=== PATIENT | male | born 1965 | race Two or more races ===

== ENCOUNTER 2018-11-04 08:30 | Outpatient (AMBR) | payer MEDICARE, MEDICAID, SELFPAY ==
--- NOTE | 2018-10-14 13:08 | PTNOTE_ITS ---
PT OP Initial Eval Patient Information Visit Reasons: myositis Medical Diagnosis: M60.9 Treatment Dx #1: Difficulty Walking Treatment Dx #2: R LE Weakness Start of Care: 10/14/18 Date of Onset: 5 years ago Initial Assessment Subjective Pt is a 53 y/o male with a history of chronic left CVA. Pt mention that he's been having difficulty walking, standing, self care, balance, and performing his normal ADLs. Pt was recently put on muscle relaxer which seems to help him move better. Pt will like to focus on his right leg strength and balance. Objective Right LE PROM: all motions are WNL Right LE AROM: all motions are WFL Right LE MMTs Hip Flexors: 3/5 Quads: 4-/5 Hs: 4-/5 Adductors: 4-/5 Abductors: 4/5 Ankle DF: 4/5 Gait Observation: decrease right LE stance with minimal preswing and push off using single point cane Assessment Pt demonstrates residual weakness within the R LE and gait difficulty leading to decline function and difficulty with ADLs. Pt will benefit from physical therapy to increase right LE stability, strength, and work on ambulation. Short Term and Assisted Goals 1) Increase right LE MMTs grossly to 4/5 in 6 wks to be able to ambulate more than 30 mins 2) Increase right LE AROM WNL in 6 wks to be able to perform self care activities 3) Decrease right LE pain to 2/10 in 6 wks to be able to take less pain medication 4) Indep with HEP Treatment Plan 1) Manual Therapy 2) Therapeutic Activities 3) Therapeutic Exercises 4) Gait Training Frequency and Duration 2 x wk for 6 wks Certification Dates: 10/14/18 to 01/13/19 Office Procedures PT Procedures PT Date of Service: 10/14/18 OP PT Eval Mod Complex 30 minutes: Yes
--- NOTE | 2018-10-16 11:44 | PT.ODAYNRPT ---
PT Outpatient Daily Note Date of Service: October 16, 2018 OP Daily Note Visit Reasons: myositis Outpatient Physical Therapy Treatment Date: 10/16/18 Subjective: Pt drove to therapy. Pt also will like therapist to review meds that he's taking Objective: Please see flow chart for list of ther ex performed Assessment: review muscle relaxer and nausea meds with patient; perform all exercises with minimal rest. Plan: Continue with PT Length of Time (minutes) of Treatment: 30 Minutes Office Procedures PT Procedures PT Date of Service: 10/14/18 OP PT Eval Mod Complex 30 minutes: Yes Therapeutic Exercise 30 minutes: Yes
--- NOTE | 2018-10-22 09:07 | PT.ODAYNRPT ---
PT Outpatient Daily Note Date of Service: October 22, 2018 OP Daily Note Visit Reasons: myositis Outpatient Physical Therapy Treatment Date: 10/22/18 Subjective: Pt feels that his leg is stronger. Pt notice a difference in stability after last treatment session. Pt will be seeing the doctor tomorrow and will like to talk to him about doing therapy for the hand. Objective: Please see flow chart for list of ther ex performed Assessment: tolerate exercises with minimal pain; added monster walk able to perform with good LEs stability Plan: Continue with PT Length of Time (minutes) of Treatment: 40 Minutes Office Procedures PT Procedures PT Date of Service: 10/22/18 Therapeutic Activity 15 minutes: Yes Therapeutic Exercise 30 minutes: Yes PT Procedures PT Date of Service: 10/14/18 OP PT Eval Mod Complex 30 minutes: Yes Therapeutic Exercise 30 minutes: Yes
--- NOTE | 2018-10-24 10:44 | PT.ODAYNRPT ---
PT Outpatient Daily Note Date of Service: October 24, 2018 OP Daily Note Visit Reasons: myositis Outpatient Physical Therapy Treatment Date: 10/24/18 Subjective: pt does have speech difficulties but can understand most of his words. pt drove here on his own. Objective: see flow sheet. Assessment: pt came in with SPC and ataxic gait pattern. pt is pleasant and cooperative throughout treatment. pt has the RUE in flexion contracture with no brace. pt understands the exercises and can perform them with using one hand but with a steady pace. added thera band for his BLE to increase strength in which he did not have trouble with. rest breaks in between. Plan: continue POC per PT. Length of Time (minutes) of Treatment: 30 Minutes Office Procedures PT Procedures PT Date of Service: 10/22/18 Therapeutic Activity 15 minutes: Yes Therapeutic Exercise 30 minutes: Yes PT Procedures PT Date of Service: 10/24/18 Therapeutic Exercise 30 minutes: Yes PT Procedures PT Date of Service: 10/14/18 OP PT Eval Mod Complex 30 minutes: Yes Therapeutic Exercise 30 minutes: Yes
--- NOTE | 2018-10-30 09:32 | PT.ODAYNRPT ---
PT Outpatient Daily Note Date of Service: October 30, 2018 OP Daily Note Visit Reasons: myositis Outpatient Physical Therapy Treatment Date: 10/30/18 Subjective: Pt was really sore and fatigue after last treatment session. Pt worked with the technical support assistant and she push him really hard. Pt is also tired today. Objective: Please see flow chart for list of ther ex performed Assessment: continue resistance to side step and monster step with good tolerance. Pt was pace slower today due to feeling fatigue and tired at the beginning of PT session Plan: Continue with PT Length of Time (minutes) of Treatment: 45 Minutes Office Procedures PT Procedures PT Date of Service: 10/22/18 Therapeutic Activity 15 minutes: Yes Therapeutic Exercise 30 minutes: Yes PT Procedures PT Date of Service: 10/24/18 Therapeutic Exercise 30 minutes: Yes PT Procedures PT Date of Service: 10/14/18 OP PT Eval Mod Complex 30 minutes: Yes Therapeutic Exercise 30 minutes: Yes PT Procedures PT Date of Service: 10/30/18 Therapeutic Activity 15 minutes: Yes Therapeutic Exercise 30 minutes: Yes
--- NOTE | 2018-10-30 09:36 | PTNOTE_ITS ---
PT Outpatient Daily Note Date of Service: October 30, 2018 OP Daily Note Visit Reasons: myositis Outpatient Physical Therapy Treatment Date: 10/30/18 Subjective: Pt was really sore and fatigue after last treatment session. Pt worked with the purchasing assistant and she push him really hard. Pt is also tired today. Objective: Please see flow chart for list of ther ex performed Assessment: continue resistance to side step and monster step with good tolerance. Pt was pace slower today due to feeling fatigue and tired at the [facility] nning of PT session Plan: Continue with PT Length of Time (minutes) of Treatment: 45 Minutes Office Procedures PT Procedures PT Date of Service: 10/22/18 Therapeutic Activity 15 minutes: Yes Therapeutic Exercise 30 minutes: Yes PT Procedures PT Date of Service: 10/24/18 Therapeutic Exercise 30 minutes: Yes PT Procedures PT Date of Service: 10/14/18 OP PT Eval Mod Complex 30 minutes: Yes Therapeutic Exercise 30 minutes: Yes PT Procedures PT Date of Service: 10/30/18 Therapeutic Activity 15 minutes: Yes Therapeutic Exercise 30 minutes: Yes
--- NOTE | 2018-11-04 09:09 | PT.ODAYNRPT ---
PT Outpatient Daily Note Date of Service: November 04, 2018 OP Daily Note Visit Reasons: myositis Outpatient Physical Therapy Treatment Date: 11/04/18 Subjective: Pt is tired today. Pt denies of any change in activities at home nor lack of sleep. Pt just feels tired lately. Objective: Please see flow chart for list of ther ex performed Assessment: no resistance added today with exercises; pace to conserve energy. Since last treatment session Pt does exhibit exhaustion. Pt educated to rest at home with activities as well as pace. Plan: Continue with PT Length of Time (minutes) of Treatment: 30 Minutes Office Procedures PT Procedures PT Date of Service: 10/22/18 Therapeutic Activity 15 minutes: Yes Therapeutic Exercise 30 minutes: Yes PT Procedures PT Date of Service: 10/24/18 Therapeutic Exercise 30 minutes: Yes PT Procedures PT Date of Service: 11/04/18 Therapeutic Exercise 30 minutes: Yes PT Procedures PT Date of Service: 10/14/18 OP PT Eval Mod Complex 30 minutes: Yes Therapeutic Exercise 30 minutes: Yes PT Procedures PT Date of Service: 10/30/18 Therapeutic Activity 15 minutes: Yes Therapeutic Exercise 30 minutes: Yes
== END 2018-11-04 09:12 | disposition home or self-care (01) ==
PROVIDERS: PCP Physician Assistant; Referring Provider Physician Assistant; Visit Provider Physical Medicine & Rehabilitation Pain Medicine
DX: M60.9 Myositis, unspecified (principal); R26.2 Difficulty in walking, not elsewhere classified; R53.1 Weakness; Z86.73 Personal history of transient ischemic attack (TIA), and cerebral infarction without residual deficits
CPT/HCPCS: 97110; 97162; 97530

== ENCOUNTER → 2024-05-12 | Outpatient (CLI) | payer MEDICARE, MEDICAID, SELFPAY | END | disposition home or self-care (01) | LOC: SWHD 08:31 | PROVIDERS: PCP Family Medicine; Referring Provider Family Medicine; Visit Provider Student in an Organized Health Care Education/Training Program | DX: L02.611 Cutaneous abscess of right foot (principal); S81.811A Laceration without foreign body, right lower leg, initial encounter; X58.XXXA Exposure to other specified factors, initial encounter; R60.0 Localized edema; E11.621 Type 2 diabetes mellitus with foot ulcer; E11.40 Type 2 diabetes mellitus with diabetic neuropathy, unspecified; Z79.4 Long term (current) use of insulin; Z79.84 Long term (current) use of oral hypoglycemic drugs; M19.042 Primary osteoarthritis, left hand; I10 Essential (primary) hypertension | CPT/HCPCS: 11042; A9270 ==

== ENCOUNTER → 2024-05-13 | Outpatient (CLI) | payer MEDICARE, MEDICAID, SELFPAY ==
[2024-05-13 10:31] LABS: Basophils % (Auto) 1 % (0-2.5); Eosinophils # (Auto) 0.6 Thou/mm3 (0.0-0.5); Eosinophils % (Auto) 12 % (0-10); Hemoglobin 11.2 g/dL (13.5-16.0); Immature Granulocytes % (Auto) 0 % (0-0); Immature Granulocytes Auto 0.01 Thou/mm3 (0.00-0.00); Lymphocytes # (Auto) 1.8 Thou/mm3 (1.0-4.8); Lymphocytes % (Auto) 34 % (10-50); Mean Corpuscular HGB Conc 31.1 g/dl (31.0-37.0); Mean Corpuscular Hemoglobin 23.8 pg (25.0-35.0); Mean Corpuscular Volume 77 fL (80-100); Monocytes # (Auto) 0.4 Thou/mm3 (0.0-0.8); Monocytes % (Auto) 8 % (0-12); Neutrophils # (Auto) 2.3 Thou/mm3 (1.8-7.7); Neutrophils % (Auto) 45 % (37-80); Nucleated Red Blood Cell % 0 /100 WBC (0); Platelet Count 229 Thou/mm3 (140-440); RDW Standard Deviation 55.8 fL (35.1-43.9); White Blood Count 5.1 Thou/mm3 (3.8-10.6)
[2024-05-13 10:47] LABS: Alanine Aminotransferase 62 U/L (10-49); Albumin, Serum 3.8 gm/dL (3.5-5.0); Alkaline Phosphatase 110 U/L (46-116); Anion Gap 7 (7-16); Aspartate Amino Transferase 41 U/L (0-34); BUN/Creatinine Ratio 15 Ratio (12-20); Bilirubin,Total 0.3 mg/dL (0.3-1.2); Blood Urea Nitrogen 22 mg/dL (9-23); Calcium 8.9 mg/dL (8.3-10.6); Calcium (Corrected) 9.1 mg/dL (8.5-10.1); Carbon Dioxide 26.3 mMol/L (20.0-31.0); Chloride 105 mMol/L (98-107); Creatinine (Component) 1.5 mg/dL (0.6-1.3); Globulin 3.9 gm/dL (2.3-3.5); Glucose 131 mg/dL (74-106); Osmolality,Calculated 280 (275-295); Potassium 3.8 mMol/L (3.4-5.1); Sodium 138 mMol/L (136-145); Total Protein 7.7 gm/dL (5.7-8.2); eGFR 54 See Note
[2024-05-13 10:56] LABS: Sed Rate (ESR) 64 mm/hr (0-20)
== END | disposition home or self-care (01) ==
LOC: SLDO 09:50
PROVIDERS: Referring Provider Family Medicine; Visit Provider Family Medicine
DX: M86.9 Osteomyelitis, unspecified (principal)
CPT/HCPCS: 36415; 80053; 85025; 85652

== ENCOUNTER → 2024-05-21 | Outpatient (CLI) | payer MEDICARE, MEDICAID, SELFPAY ==
[2024-05-21 12:00] LABS: Basophils # (Auto) 0.1 Thou/mm3 (0.0-0.2); Basophils % (Auto) 1 % (0-2.5); Eosinophils # (Auto) 0.5 Thou/mm3 (0.0-0.5); Eosinophils % (Auto) 8 % (0-10); Hematocrit 37.5 % (41.0-53.0); Hemoglobin 11.5 g/dL (13.5-16.0); Immature Granulocytes % (Auto) 1 % (0-0); Immature Granulocytes Auto 0.03 Thou/mm3 (0.00-0.00); Lymphocytes # (Auto) 2.1 Thou/mm3 (1.0-4.8); Lymphocytes % (Auto) 33 % (10-50); Mean Corpuscular HGB Conc 30.7 g/dl (31.0-37.0); Mean Corpuscular Hemoglobin 23.9 pg (25.0-35.0); Mean Corpuscular Volume 78 fL (80-100); Monocytes # (Auto) 0.5 Thou/mm3 (0.0-0.8); Monocytes % (Auto) 7 % (0-12); Neutrophils # (Auto) 3.3 Thou/mm3 (1.8-7.7); Neutrophils % (Auto) 50 % (37-80); Nucleated Red Blood Cell % 0 /100 WBC (0); Platelet Count 284 Thou/mm3 (140-440); RDW Standard Deviation 54.1 fL (35.1-43.9); Red Blood Count 4.82 Miln/mm3 (4.50-5.90); White Blood Count 6.5 Thou/mm3 (3.8-10.6)
[2024-05-21 12:19] LABS: Alanine Aminotransferase 27 U/L (10-49); Albumin, Serum 3.9 gm/dL (3.5-5.0); Alkaline Phosphatase 112 U/L (46-116); Anion Gap 5 (7-16); Aspartate Amino Transferase 23 U/L (0-34); BUN/Creatinine Ratio 19 Ratio (12-20); Bilirubin,Total 0.3 mg/dL (0.3-1.2); Blood Urea Nitrogen 32 mg/dL (9-23); Calcium 9.5 mg/dL (8.3-10.6); Calcium (Corrected) 9.6 mg/dL (8.5-10.1); Carbon Dioxide 27.9 mMol/L (20.0-31.0); Chloride 102 mMol/L (98-107); Creatinine (Component) 1.7 mg/dL (0.6-1.3); Globulin 3.9 gm/dL (2.3-3.5); Glucose 257 mg/dL (74-106); Osmolality,Calculated 286 (275-295); Sodium 135 mMol/L (136-145); Total Protein 7.8 gm/dL (5.7-8.2); eGFR 47 See Note
[2024-05-21 12:56] LABS: Sed Rate (ESR) 74 mm/hr (0-20)
== END | disposition home or self-care (01) ==
LOC: SLDO 11:05
PROVIDERS: PCP Family Medicine; Referring Provider Family Medicine; Visit Provider Family Medicine
DX: M86.9 Osteomyelitis, unspecified (principal)
CPT/HCPCS: 36415; 80053; 85025; 85652

== ENCOUNTER → 2024-05-27 | Outpatient (CLI) | payer MEDICARE, MEDICAID, SELFPAY ==
[2024-05-27 16:47] LABS: Basophils # (Auto) 0.1 Thou/mm3 (0.0-0.2); Basophils % (Auto) 1 % (0-2.5); Eosinophils # (Auto) 0.8 Thou/mm3 (0.0-0.5); Eosinophils % (Auto) 9 % (0-10); Hematocrit 36.6 % (41.0-53.0); Hemoglobin 11.7 g/dL (13.5-16.0); Immature Granulocytes % (Auto) 0 % (0-0); Immature Granulocytes Auto 0.02 Thou/mm3 (0.00-0.00); Lymphocytes # (Auto) 2.2 Thou/mm3 (1.0-4.8); Lymphocytes % (Auto) 26 % (10-50); Mean Corpuscular Hemoglobin 24.5 pg (25.0-35.0); Mean Corpuscular Volume 77 fL (80-100); Monocytes # (Auto) 0.4 Thou/mm3 (0.0-0.8); Monocytes % (Auto) 5 % (0-12); Neutrophils # (Auto) 4.9 Thou/mm3 (1.8-7.7); Neutrophils % (Auto) 59 % (37-80); Nucleated Red Blood Cell % 0 /100 WBC (0); Platelet Count 272 Thou/mm3 (140-440); RDW Standard Deviation 51.8 fL (35.1-43.9); Red Blood Count 4.78 Miln/mm3 (4.50-5.90); White Blood Count 8.4 Thou/mm3 (3.8-10.6)
[2024-05-27 17:04] LABS: Alanine Aminotransferase 44 U/L (10-49); Albumin, Serum 3.8 gm/dL (3.5-5.0); Albumin/Globulin Ratio 1.1 (1.2-2.2); Alkaline Phosphatase 119 U/L (46-116); Anion Gap 7 (7-16); Aspartate Amino Transferase 17 U/L (0-34); BUN/Creatinine Ratio 16 Ratio (12-20); Bilirubin,Total 0.2 mg/dL (0.3-1.2); Blood Urea Nitrogen 31 mg/dL (9-23); Calcium (Corrected) 9.2 mg/dL (8.5-10.1); Carbon Dioxide 27.3 mMol/L (20.0-31.0); Chloride 100 mMol/L (98-107); Globulin 3.5 gm/dL (2.3-3.5); Glucose 366 mg/dL (74-106); Osmolality,Calculated 289 (275-295); Potassium 4.4 mMol/L (3.4-5.1); Sodium 134 mMol/L (136-145); Total Protein 7.3 gm/dL (5.7-8.2); eGFR 38 See Note
[2024-05-27 17:58] LABS: Sed Rate (ESR) 109 mm/hr (0-20)
== END | disposition home or self-care (01) ==
LOC: SLDO 15:44
PROVIDERS: PCP Family Medicine; Referring Provider Family Medicine; Visit Provider Family Medicine
DX: M86.9 Osteomyelitis, unspecified (principal)
CPT/HCPCS: 36415; 80053; 85025; 85652

== ENCOUNTER → 2024-06-02 | Outpatient (CLI) | payer MEDICARE, MEDICAID, SELFPAY | END | disposition home or self-care (01) | LOC: SWHD 08:42 | PROVIDERS: PCP Family Medicine; Referring Provider Family Medicine; Visit Provider Student in an Organized Health Care Education/Training Program | DX: E11.621 Type 2 diabetes mellitus with foot ulcer (principal); L97.512 Non-pressure chronic ulcer of other part of right foot with fat layer exposed; E11.40 Type 2 diabetes mellitus with diabetic neuropathy, unspecified; Z79.4 Long term (current) use of insulin; Z79.84 Long term (current) use of oral hypoglycemic drugs; M19.042 Primary osteoarthritis, left hand; R60.0 Localized edema; L02.611 Cutaneous abscess of right foot; I10 Essential (primary) hypertension; I67.89 Other cerebrovascular disease; G81.91 Hemiplegia, unspecified affecting right dominant side; I73.9 Peripheral vascular disease, unspecified; D64.9 Anemia, unspecified | CPT/HCPCS: 99213; A9270; G0463 ==

== ENCOUNTER → 2024-06-03 | Outpatient (CLI) | payer MEDICARE, MEDICAID, SELFPAY ==
[2024-06-03 13:16] LABS: Basophils # (Auto) 0.1 Thou/mm3 (0.0-0.2); Basophils % (Auto) 1 % (0-2.5); Eosinophils # (Auto) 0.8 Thou/mm3 (0.0-0.5); Eosinophils % (Auto) 10 % (0-10); Hematocrit 36.1 % (41.0-53.0); Hemoglobin 11.2 g/dL (13.5-16.0); Immature Granulocytes % (Auto) 0 % (0-0); Immature Granulocytes Auto 0.02 Thou/mm3 (0.00-0.00); Lymphocytes # (Auto) 2.6 Thou/mm3 (1.0-4.8); Lymphocytes % (Auto) 31 % (10-50); Mean Corpuscular Hemoglobin 23.8 pg (25.0-35.0); Mean Corpuscular Volume 77 fL (80-100); Monocytes # (Auto) 0.5 Thou/mm3 (0.0-0.8); Monocytes % (Auto) 6 % (0-12); Neutrophils # (Auto) 4.5 Thou/mm3 (1.8-7.7); Neutrophils % (Auto) 53 % (37-80); Nucleated Red Blood Cell % 0 /100 WBC (0); Platelet Count 220 Thou/mm3 (140-440); RDW Standard Deviation 50.5 fL (35.1-43.9); White Blood Count 8.6 Thou/mm3 (3.8-10.6)
[2024-06-03 13:45] LABS: Anion Gap 10 (7-16); BUN/Creatinine Ratio 15 Ratio (12-20); Blood Urea Nitrogen 25 mg/dL (9-23); Calcium 8.6 mg/dL (8.3-10.6); Carbon Dioxide 22.6 mMol/L (20.0-31.0); Chloride 99 mMol/L (98-107); Creatinine (Component) 1.7 mg/dL (0.6-1.3); Glucose 354 mg/dL (74-106); Osmolality,Calculated 282 (275-295); Potassium 4.1 mMol/L (3.4-5.1); Sodium 132 mMol/L (136-145); eGFR 47 See Note
== END | disposition home or self-care (01) ==
PROVIDERS: PCP Family Medicine; Referring Provider Family Medicine; Visit Provider Family Medicine
DX: M86.00 Acute hematogenous osteomyelitis, unspecified site (principal)
CPT/HCPCS: 36415; 80048; 85025

== ENCOUNTER → 2024-06-09 | Outpatient (CLI) | payer MEDICARE, MEDICAID, SELFPAY | END | disposition home or self-care (01) | LOC: SWHD 08:35 | PROVIDERS: PCP Family Medicine; Referring Provider Family Medicine; Visit Provider Student in an Organized Health Care Education/Training Program | DX: L97.512 Non-pressure chronic ulcer of other part of right foot with fat layer exposed (principal); E11.40 Type 2 diabetes mellitus with diabetic neuropathy, unspecified; Z79.4 Long term (current) use of insulin; Z79.84 Long term (current) use of oral hypoglycemic drugs; M19.042 Primary osteoarthritis, left hand; R60.0 Localized edema; L02.611 Cutaneous abscess of right foot; I10 Essential (primary) hypertension; I67.89 Other cerebrovascular disease; G81.91 Hemiplegia, unspecified affecting right dominant side; I73.9 Peripheral vascular disease, unspecified; D64.9 Anemia, unspecified | CPT/HCPCS: 87070; 87075; 87077; 87186; 87205; 99213; A9270; G0463 ==

== ENCOUNTER → 2024-06-10 | Outpatient (CLI) | payer MEDICARE, MEDICAID, SELFPAY ==
[2024-06-10 14:22] LABS: Basophils # (Auto) 0.1 Thou/mm3 (0.0-0.2); Basophils % (Auto) 1 % (0-2.5); Eosinophils # (Auto) 1.3 Thou/mm3 (0.0-0.5); Eosinophils % (Auto) 16 % (0-10); Hematocrit 35.6 % (41.0-53.0); Immature Granulocytes % (Auto) 0 % (0-0); Immature Granulocytes Auto 0.02 Thou/mm3 (0.00-0.00); Lymphocytes # (Auto) 1.9 Thou/mm3 (1.0-4.8); Lymphocytes % (Auto) 23 % (10-50); Mean Corpuscular HGB Conc 30.9 g/dl (31.0-37.0); Mean Corpuscular Hemoglobin 23.8 pg (25.0-35.0); Mean Corpuscular Volume 77 fL (80-100); Monocytes # (Auto) 0.9 Thou/mm3 (0.0-0.8); Monocytes % (Auto) 11 % (0-12); Neutrophils # (Auto) 4.1 Thou/mm3 (1.8-7.7); Neutrophils % (Auto) 50 % (37-80); Nucleated Red Blood Cell % 0 /100 WBC (0); Platelet Count 179 Thou/mm3 (140-440); RDW Standard Deviation 52.1 fL (35.1-43.9); Red Blood Count 4.62 Miln/mm3 (4.50-5.90); White Blood Count 8.3 Thou/mm3 (3.8-10.6)
[2024-06-10 14:51] LABS: Anion Gap 10 (7-16); BUN/Creatinine Ratio 17 Ratio (12-20); Blood Urea Nitrogen 33 mg/dL (9-23); Calcium 9.5 mg/dL (8.3-10.6); Chloride 97 mMol/L (98-107); Glucose 358 mg/dL (74-106); Osmolality,Calculated 285 (275-295); Potassium 4.2 mMol/L (3.4-5.1); Sodium 132 mMol/L (136-145); eGFR 38 See Note
== END | disposition home or self-care (01) ==
LOC: SLDO 13:03
PROVIDERS: Referring Provider Family Medicine; Visit Provider Family Medicine
DX: M86.9 Osteomyelitis, unspecified (principal)
CPT/HCPCS: 36415; 80048; 85025

== ENCOUNTER → 2024-06-16 | Outpatient (CLI) | payer MEDICARE, MEDICAID, SELFPAY | END | disposition home or self-care (01) | LOC: SWHD 08:40 | PROVIDERS: PCP Family Medicine; Referring Provider Family Medicine; Visit Provider Surgery | DX: E11.621 Type 2 diabetes mellitus with foot ulcer (principal); L97.512 Non-pressure chronic ulcer of other part of right foot with fat layer exposed; E11.40 Type 2 diabetes mellitus with diabetic neuropathy, unspecified; M19.042 Primary osteoarthritis, left hand; R60.0 Localized edema; L02.611 Cutaneous abscess of right foot; I10 Essential (primary) hypertension; I67.89 Other cerebrovascular disease; G81.91 Hemiplegia, unspecified affecting right dominant side; I73.9 Peripheral vascular disease, unspecified; D64.9 Anemia, unspecified; Z79.84 Long term (current) use of oral hypoglycemic drugs; Z79.4 Long term (current) use of insulin | CPT/HCPCS: 99213; A9270; G0463 ==

== ENCOUNTER → 2024-06-17 | Outpatient (CLI) | payer MEDICARE, MEDICAID, SELFPAY ==
[2024-06-17 12:37] LABS: Basophils # (Auto) 0.1 Thou/mm3 (0.0-0.2); Basophils % (Auto) 1 % (0-2.5); Eosinophils # (Auto) 0.9 Thou/mm3 (0.0-0.5); Eosinophils % (Auto) 10 % (0-10); Hematocrit 38.2 % (41.0-53.0); Immature Granulocytes % (Auto) 1 % (0-0); Immature Granulocytes Auto 0.06 Thou/mm3 (0.00-0.00); Lymphocytes # (Auto) 2.8 Thou/mm3 (1.0-4.8); Lymphocytes % (Auto) 31 % (10-50); Mean Corpuscular HGB Conc 31.4 g/dl (31.0-37.0); Mean Corpuscular Hemoglobin 23.9 pg (25.0-35.0); Mean Corpuscular Volume 76 fL (80-100); Monocytes # (Auto) 0.5 Thou/mm3 (0.0-0.8); Monocytes % (Auto) 5 % (0-12); Neutrophils # (Auto) 4.6 Thou/mm3 (1.8-7.7); Neutrophils % (Auto) 52 % (37-80); Nucleated Red Blood Cell % 0 /100 WBC (0); Platelet Count 308 Thou/mm3 (140-440); RDW Standard Deviation 49.8 fL (35.1-43.9); Red Blood Count 5.03 Miln/mm3 (4.50-5.90); White Blood Count 8.8 Thou/mm3 (3.8-10.6)
[2024-06-17 12:58] LABS: Anion Gap 8 (7-16); BUN/Creatinine Ratio 16 Ratio (12-20); Blood Urea Nitrogen 28 mg/dL (9-23); Calcium 9.6 mg/dL (8.3-10.6); Chloride 100 mMol/L (98-107); Creatinine (Component) 1.8 mg/dL (0.6-1.3); Glucose 227 mg/dL (74-106); Osmolality,Calculated 280 (275-295); Potassium 4.1 mMol/L (3.4-5.1); Sodium 134 mMol/L (136-145); eGFR 44 See Note
== END | disposition home or self-care (01) ==
LOC: SLDO 11:21
PROVIDERS: PCP Family Medicine; Referring Provider Family Medicine; Visit Provider Family Medicine
DX: M86.9 Osteomyelitis, unspecified (principal)
CPT/HCPCS: 36415; 80048; 85025

== ENCOUNTER → 2024-06-23 | Outpatient (CLI) | payer MEDICARE, MEDICAID, SELFPAY | END | disposition home or self-care (01) | LOC: SWHD 08:19 | PROVIDERS: PCP Family Medicine; Referring Provider Family Medicine; Visit Provider Student in an Organized Health Care Education/Training Program | DX: E11.621 Type 2 diabetes mellitus with foot ulcer (principal); L97.512 Non-pressure chronic ulcer of other part of right foot with fat layer exposed; E11.40 Type 2 diabetes mellitus with diabetic neuropathy, unspecified; M19.042 Primary osteoarthritis, left hand; R60.0 Localized edema; L02.611 Cutaneous abscess of right foot; I10 Essential (primary) hypertension; I67.89 Other cerebrovascular disease; G81.91 Hemiplegia, unspecified affecting right dominant side; I73.9 Peripheral vascular disease, unspecified; D64.9 Anemia, unspecified; Z79.84 Long term (current) use of oral hypoglycemic drugs; Z79.4 Long term (current) use of insulin | CPT/HCPCS: 10060; A9270 ==

== ENCOUNTER → 2024-06-25 | Outpatient (CLI) | payer MEDICARE, MEDICAID, SELFPAY ==
[2024-06-25 11:26] LABS: Basophils # (Auto) 0.1 Thou/mm3 (0.0-0.2); Basophils % (Auto) 1 % (0-2.5); Eosinophils # (Auto) 1.1 Thou/mm3 (0.0-0.5); Eosinophils % (Auto) 12 % (0-10); Hematocrit 36.8 % (41.0-53.0); Hemoglobin 11.6 g/dL (13.5-16.0); Immature Granulocytes % (Auto) 0 % (0-0); Immature Granulocytes Auto 0.02 Thou/mm3 (0.00-0.00); Lymphocytes # (Auto) 2.6 Thou/mm3 (1.0-4.8); Lymphocytes % (Auto) 31 % (10-50); Mean Corpuscular HGB Conc 31.5 g/dl (31.0-37.0); Mean Corpuscular Hemoglobin 23.6 pg (25.0-35.0); Mean Corpuscular Volume 75 fL (80-100); Monocytes # (Auto) 0.5 Thou/mm3 (0.0-0.8); Monocytes % (Auto) 6 % (0-12); Neutrophils # (Auto) 4.3 Thou/mm3 (1.8-7.7); Neutrophils % (Auto) 50 % (37-80); Nucleated Red Blood Cell % 0 /100 WBC (0); Platelet Count 314 Thou/mm3 (140-440); RDW Standard Deviation 48.6 fL (35.1-43.9); Red Blood Count 4.91 Miln/mm3 (4.50-5.90); White Blood Count 8.6 Thou/mm3 (3.8-10.6)
[2024-06-25 11:44] LABS: Alanine Aminotransferase 42 U/L (10-49); Albumin, Serum 4.2 gm/dL (3.5-5.0); Albumin/Globulin Ratio 1.3 (1.2-2.2); Alkaline Phosphatase 107 U/L (46-116); Anion Gap 9 (7-16); Aspartate Amino Transferase 32 U/L (0-34); BUN/Creatinine Ratio 18 Ratio (12-20); Bilirubin,Total 0.2 mg/dL (0.3-1.2); Blood Urea Nitrogen 38 mg/dL (9-23); Calcium 9.7 mg/dL (8.3-10.6); Calcium (Corrected) 9.7 mg/dL (8.5-10.1); Carbon Dioxide 26.3 mMol/L (20.0-31.0); Chloride 100 mMol/L (98-107); Creatinine (Component) 2.1 mg/dL (0.6-1.3); Globulin 3.3 gm/dL (2.3-3.5); Glucose 329 mg/dL (74-106); Osmolality,Calculated 292 (275-295); Sodium 135 mMol/L (136-145); Total Protein 7.5 gm/dL (5.7-8.2); eGFR 36 See Note
== END | disposition home or self-care (01) ==
LOC: SLDO 10:13
PROVIDERS: PCP Family Medicine; Referring Provider Family Medicine; Visit Provider Family Medicine
DX: Z01.89 Encounter for other specified special examinations (principal); Z79.2 Long term (current) use of antibiotics
CPT/HCPCS: 36415; 80053; 85025

== ENCOUNTER → 2024-06-30 | Outpatient (CLI) | payer MEDICARE, MEDICAID, SELFPAY | END | disposition home or self-care (01) | LOC: SWHD 08:17 | PROVIDERS: PCP Family Medicine; Referring Provider Family Medicine; Visit Provider Student in an Organized Health Care Education/Training Program | DX: E11.621 Type 2 diabetes mellitus with foot ulcer (principal); L97.512 Non-pressure chronic ulcer of other part of right foot with fat layer exposed; E11.40 Type 2 diabetes mellitus with diabetic neuropathy, unspecified; M19.042 Primary osteoarthritis, left hand; R60.0 Localized edema; L02.611 Cutaneous abscess of right foot; I10 Essential (primary) hypertension; I67.89 Other cerebrovascular disease; G81.91 Hemiplegia, unspecified affecting right dominant side; I73.9 Peripheral vascular disease, unspecified; D64.9 Anemia, unspecified; Z79.84 Long term (current) use of oral hypoglycemic drugs; Z79.4 Long term (current) use of insulin | CPT/HCPCS: 99213; A9270; G0463 ==

== ENCOUNTER → 2024-07-01 | Outpatient (CLI) | payer MEDICARE, MEDICAID, SELFPAY ==
[2024-07-01 15:03] LABS: Basophils # (Auto) 0.1 Thou/mm3 (0.0-0.2); Basophils % (Auto) 1 % (0-2.5); Eosinophils # (Auto) 0.9 Thou/mm3 (0.0-0.5); Eosinophils % (Auto) 14 % (0-10); Hematocrit 35.7 % (41.0-53.0); Hemoglobin 11.1 g/dL (13.5-16.0); Immature Granulocytes % (Auto) 0 % (0-0); Immature Granulocytes Auto 0.02 Thou/mm3 (0.00-0.00); Lymphocytes # (Auto) 2.3 Thou/mm3 (1.0-4.8); Lymphocytes % (Auto) 36 % (10-50); Mean Corpuscular HGB Conc 31.1 g/dl (31.0-37.0); Mean Corpuscular Hemoglobin 23.6 pg (25.0-35.0); Mean Corpuscular Volume 76 fL (80-100); Monocytes # (Auto) 0.6 Thou/mm3 (0.0-0.8); Monocytes % (Auto) 9 % (0-12); Neutrophils # (Auto) 2.6 Thou/mm3 (1.8-7.7); Neutrophils % (Auto) 40 % (37-80); Nucleated Red Blood Cell % 0 /100 WBC (0); Platelet Count 249 Thou/mm3 (140-440); Red Blood Count 4.71 Miln/mm3 (4.50-5.90); White Blood Count 6.5 Thou/mm3 (3.8-10.6)
[2024-07-01 15:16] LABS: Anion Gap 9 (7-16); BUN/Creatinine Ratio 14 Ratio (12-20); Blood Urea Nitrogen 23 mg/dL (9-23); Calcium 9.5 mg/dL (8.3-10.6); Carbon Dioxide 28.5 mMol/L (20.0-31.0); Chloride 96 mMol/L (98-107); Creatinine (Component) 1.7 mg/dL (0.6-1.3); Glucose 382 mg/dL (74-106); Osmolality,Calculated 286 (275-295); Potassium 3.9 mMol/L (3.4-5.1); Sodium 133 mMol/L (136-145); eGFR 47 See Note
== END | disposition home or self-care (01) ==
LOC: SLDO 13:39
PROVIDERS: PCP Family Medicine; Referring Provider Family Medicine; Visit Provider Family Medicine
DX: Z01.89 Encounter for other specified special examinations (principal)
CPT/HCPCS: 36415; 80048; 85025

== ENCOUNTER 2024-07-07 17:54 | Emergency (ER) | payer MEDICARE, MEDICAID, SELFPAY ==
[2024-07-07 17:55] VITALS: BMI 24.3
[2024-07-07 18:37] VITALS: BP 116/62; PULSE 110; RESP 17; TEMP 36.9; O2SAT 95
--- NOTE | 2024-07-07 18:46 | PD.EDRME ---
Rapid Medical Screening Exam RME Arrival date/time: 07/07/24 17:54 58-year-old male past medical history of CVA with right-sided weakness, diabetes on insulin, osteomyelitis, and currently receiving IV antibiotics at home presents emergency department complaining of elevated blood sugar greater than 600. Chief Complaint: General Adult/Misc Complain Time Seen by Provider: 07/07/24 18:39 Vital signs: Vital Signs Temperature 98.4 F 07/07/24 18:37 Pulse Rate 110 H 07/07/24 18:37 Respiratory Rate 17 07/07/24 18:37 Blood Pressure 116/62 07/07/24 18:37 Pulse Oximetry (%) 95 07/07/24 18:37 Oxygen Delivery Method Room Air 07/07/24 18:37 Vital signs reviewed by provider: Yes
[2024-07-07 19:20] LABS: Base Excess, Venous 0 (-3-3); Basophils # (Auto) 0.1 Thou/mm3 (0.0-0.2); Basophils % (Auto) 1 % (0-2.5); Eosinophils # (Auto) 0.5 Thou/mm3 (0.0-0.5); Eosinophils % (Auto) 5 % (0-10); Hematocrit 38.7 % (41.0-53.0); Hemoglobin 12.2 g/dL (13.5-16.0); Immature Granulocytes % (Auto) 0 % (0-0); Immature Granulocytes Auto 0.02 Thou/mm3 (0.00-0.00); Lymphocytes # (Auto) 0.9 Thou/mm3 (1.0-4.8); Lymphocytes % (Auto) 10 % (10-50); Mean Corpuscular HGB Conc 31.5 g/dl (31.0-37.0); Mean Corpuscular Hemoglobin 23.7 pg (25.0-35.0); Mean Corpuscular Volume 75 fL (80-100); Monocytes # (Auto) 0.6 Thou/mm3 (0.0-0.8); Monocytes % (Auto) 6 % (0-12); Neutrophils # (Auto) 7.2 Thou/mm3 (1.8-7.7); Neutrophils % (Auto) 78 % (37-80); Nucleated Red Blood Cell % 0 /100 WBC (0); O2 Saturation, Venous 79 % (96-97); PCO2, Venous 37 mmHg (36-56); PO2, Venous 41 mmHg (15-58); Platelet Count 253 Thou/mm3 (140-440); RDW Standard Deviation 45.7 fL (35.1-43.9); Red Blood Count 5.14 Miln/mm3 (4.50-5.90); White Blood Count 9.2 Thou/mm3 (3.8-10.6); pH, Venous 7.43 (7.33-7.66)
[2024-07-07 19:32] LABS: Beta Hydroxybutyrate 0.2 mmol/L (<0.6)
[2024-07-07 19:34] LABS: Lactate (Lactic Acid) 4.7 mMol/L (0.4-2.0)
[2024-07-07 19:47] LABS: Glucose Estimated Average 266 mg/dL (80-131); Hemoglobin A1C 10.9 % Hgb (4.8-6.0)
[2024-07-07 19:52] VITALS: BP 116/76; PULSE 112; RESP 20; TEMP 36.4; O2SAT 100
[2024-07-07 19:54] LABS: Alanine Aminotransferase 26 U/L (10-49); Albumin, Serum 4.5 gm/dL (3.5-5.0); Albumin/Globulin Ratio 1.1 (1.2-2.2); Alkaline Phosphatase 132 U/L (46-116); Anion Gap 12 (7-16); Aspartate Amino Transferase 10 U/L (0-34); BUN/Creatinine Ratio 10 Ratio (12-20); Bilirubin,Total 0.3 mg/dL (0.3-1.2); Blood Urea Nitrogen 26 mg/dL (9-23); Calcium 10.7 mg/dL (8.3-10.6); Calcium (Corrected) 10.7 mg/dL (8.5-10.1); Carbon Dioxide 24.4 mMol/L (20.0-31.0); Chloride 94 mMol/L (98-107); Creatinine (Component) 2.7 mg/dL (0.6-1.3); Estimated Creatinine Clearance 29.6 mL/min (>60); Osmolality,Calculated 292 (275-295); Potassium 4.1 mMol/L (3.4-5.1); Sodium 130 mMol/L (136-145); Total Protein 8.5 gm/dL (5.7-8.2); eGFR 27 See Note
[2024-07-07 19:56] LABS: Glucose 591 mg/dL (74-106)
--- NOTE | 2024-07-07 20:03 | EDNOTE_ITS ---
ED General RME/HPI General Chief complaint: General Adult/Misc Complain Stated complaint: HIGH BLOOD SUGAR, 680 AT HOME Time Seen by Provider: 07/07/24 18:39 Arrival date/time: 07/07/24 17:54 CC: Anxiety attack HPI ongoing all day however the patient does admit that he has nausea, and vomited x 1 today, denies diarrhea. The patient is not taking any of his medications today including his insulin. The patient is on treatment for osteomyelitis in the right foot he has a PICC line in the left arm. It is unclear whether the patient took his medications yesterday not even with the family member at bedside 1 states that he did take him and the other did not. Patient is awake alert oriented no complaints of pain shortness of breath or difficulty breathing and his anxiety has resolved. RME / HPI RME / HPI narrative: 07/07/24 17:54 58-year-old male past medical history of CVA with right-sided weakness, diabetes on insulin, osteomyelitis, and currently receiving IV antibiotics at home presents emergency department complaining of elevated blood sugar greater than 600. Related Data Home Medications ?Medication ?Instructions ?Recorded ?Confirmed aspirin 81 mg chewable tablet 81 mg PO DAILY 07/23/23 04/30/24 buspirone 15 mg tablet 30 mg PO BID 07/23/23 04/30/24 duloxetine 30 mg capsule,delayed 30 mg PO QDAY 07/23/23 04/30/24 release atorvastatin 40 mg tablet 40 mg PO QPM 01/13/24 04/30/24 sitagliptin phosphate 50 1 tab PO BID 01/13/24 04/30/24 mg-metformin 1,000 mg tablet (Janumet) baclofen 20 mg tablet 20 mg PO BID 03/30/24 04/30/24 Previous Rx's ?Medication ?Instructions ?Recorded blood-glucose sensor (FreeStyle #1 ea 01/16/24 Isale 3 Sensor device) lisinopril 40 mg tablet 40 mg PO QDAY #30 tabs 01/16/24 tamsulosin 0.4 mg capsule 0.4 mg PO QDAY #30 caps 01/16/24 pen needle, diabetic 31 gauge x #100 ea 01/17/2411/21 (Pen Needle) bisacodyl 5 mg tablet (Laxative 5 mg PO QDAY PRN constipation #30 02/03/24 (bisacodyl)) tabs blood sugar diagnostic (Accu-Chek #100 ea 03/31/24 Guide test strips) blood-glucose meter (Accu-Chek #1 03/31/24 Guide Glucose Meter) blood-glucose meter,continuous #1 03/31/24 (FreeStyle Isael 3 [place]) blood-glucose sensor (FreeStyle #1 ea 03/31/24 Isael 3 Sensor device) lancets (Accu-Chek Softclix #100 ea 03/31/24 Lancets) pen needle, diabetic 32 gauge x #100 ea 03/31/24 (Pen Needle) insulin degludec 200 unit/mL (3 10 unit (0.05 mL) subcut QDAY #9 mL 05/01/24 mL) subcutaneous pen (Tresiba FlexTouch U-200 insulin) Allergies Allergy/AdvReac Type Severity Reaction Status Date / Time No Known Allergies Allergy Verified 07/07/24 17:55 Review of Systems Review of Systems Narrative Review of Systems: GEN: No fever, no chills, no weight loss EYES: No discharge, no visual changes, no pain HEENT: No ear pain, no congestion, no sore throat PULM: No shortness of breath, no cough, no congestion CV: No chest pain, no dyspnea on exertion, no palpitations GI: + nausea, + vomiting, no diarrhea, no pain, no constipation : No frequency, no urgency, no dysuria MUSC/SKEL: No joint pain, no back pain SKIN: No rash PSYCH: No hallucinations, no depression HEME/LYMPH: No easy bleeding or bruising tendencies NEURO: No weakness, no headache Past Medical History Past Medical History NEUROLOGIC: Positive Neurological Disorders and Cerebrovascular Accident (2012); Negative Transient Ischemic Attacks (TIA), Dementia, Alzheimer's Disease, Parkinson's Disease, Brain Tumor, Meningitis, Seizures, Epilepsy, Multiple Sclerosis, Cerebral Palsy, Amyotrophic Lateral Sclerosis (ALS/Katie Gehrig's), Guillain-Stevenson Syndrome, Spina Bifida, Paralysis, Peripheral Neuropathy, Boogie's Palsy, Subdural Hematoma, Migraine, Head Trauma, Spinal Cord Injury or Traumatic Brain Injury CARDIAC: Positive Cardiac Disorders, Hypercholesterolemia, Edema and Hypertension; Negative Myocardial Infarction, Cardiac Arrhythmia, Atrial Fibrillation, Angina, Heart Murmur, Coronary Artery Disease, Atherosclerotic Heart Disease, Peripheral Vascular Disease, Aneurysm, Congestive Heart Failure, Congenital Heart Disease, Valvular Heart Disease, Rheumatic Fever, Cardiomyopathy, Pericarditis, Cellulitis, Deep Vein Thrombosis, Hypotension or Varicose Veins RESPIRATORY: Positive Asthma and Pneumonia; Negative Chronic Obstructive Pulmonary Disease (COPD), Bronchitis, Emphysema, Cystic Fibrosis, Tuberculosis, Pulmonary Embolism, Pulmonary Edema or Sleep Apnea GASTROINTESTINAL: Positive Gastroesophageal Reflux Disease; Negative Gastrointestinal Disorders, Hepatitis, Cirrhosis, Pancreatitis, Celiac Disease, Gall Bladder Disease, Gastrointestinal Bleed, Esophageal Varices, Lowry's Esophagus, Colitis, Ulcerative Colitis, Diverticulitis, Diverticulosis, Ulcer, Colorectal Cancer, Irritable Bowel, Crohn's Disease, Obstructive Bowel, Hiatal Hernia, Hemorrhoids or Obesity GENITOURINARY: Positive Genitourinary Disorders, Renal Disease and Inguinal Hernia; Negative Kidney Stones, Polycystic Kidney Disease, Neurogenic Bladder, Dialysis, Prostate Cancer or Benign Prostatic Hyperplasia REPRODUCTIVE: Negative Fibroids or Testicular Cancer MUSCULOSKELETAL: Negative Musculoskeletal Disorders, Muscular Dystrophy, Myasthenia Gravis, Marfan's Syndrome, Bone Cancer, Arthritis, Rheumatoid Arthritis, Osteoporosis, Degenerative Disk Disease, Gout, Scoliosis, Carpal Tunnel Syndrome, Fibromyalgia, Fractures, Degenerative Joint Disease, Osteomyelitis or Poliovirus ENT: Negative Cataracts, Glaucoma, Blind, Retinal Detachment, Macular Degeneration, Ear Infection, Deafness, Head Trauma or Eye Prosthesis ENDOCRINE: Positive Endocrine Disorders and Diabetes Mellitus Type 2; Negative Diabetes Mellitus Type 1, Hypoglycemia, Brayden's Syndrome, Kane's Disease, Hyperthyroidism, Hypothyroidism, Parathyroid Disease, Pituitary Disease, Systemic Lupus Erythematosus, Syndrome of Inappropriate Antidiuretic Hormone (SIADH), Adrenal Disease or Graves' Disease HEMATOLOGIC: Negative Blood Disorders, Anemia, Leukemia, Hemophilia, Thalassemia, Sickle Cell Disease or Clotting Problems PSYCHO/SOCIAL: Positive Anxiety and Self-Mutilation; Negative Psychiatric Problems, Schizophrenia, Recreational Drug Use, Bipolar Disorder, Depression, Behavior Problems, Attention Deficit Disorder, Attention Deficit Hyperactivity Disorder, Depression, Post Traumatic Stress Disorder or Eating Disorder OTHER HISTORY: Positive Falls; Negative Hospitalization, Autoimmune Disease, Down Syndrome, Autism, Developmental Delay, Shingles, Blood Transfusions, Blood Transfusion Reaction, Anesthesia Reactions, Organ Transplant, Chemotherapy, Radiation Therapy, Hyperbaric Therapy, MRSA, VRSA, Vancomycin-Resistant Enterococci, Human Immunodeficiency Virus (HIV), Chicken Pox, Measles, Mumps, Rubella (Congolese Measles), Pertussis, Clostridium Difficile, Cancer, Colorectal Cancer, Lung Cancer, Ovarian Cancer, Prostate Cancer or Testicular Cancer Family History FAMILY HISTORY: Negative Family Psychiatric Problems, Family Respiratory Disorders, Family Cardiac Disorders, Family Gastrointestinal Problems, Family Cancer, Family Surgery or Family Anesthesia Reaction Surgical History SURGICAL: Positive Abdominal Surgery; Negative Cardiac Surgery, Open Heart Surgery, Coronary Artery Bypass Graft, Valve Replacement, Vascular Surgery, Coronary Stent, Cardiac Catheterization, Pacemaker, Angiogram, Auto Implanted Cardiovert Defib, Carotid Endarterectomy, Endocrine Surgery, Thyroidectomy, Ear Surgery, Tympanostomy Tube, Eye Surgery, Nose Surgery, Oral Surgery, Tonsillectomy, Adenoidectomy, Cochlear Implant, Corneal Transplant, Throat Surgery, Tracheostomy, Gastric Bypass Surgery, Gastrostomy, Bowel Surgery, Nephrectomy, Transurethral Resection, Joint Replacement, Amputation, Open Reduction Internal Fixation, Arthroscopy, Neurologic Surgery, Brain Shunt, Vasectomy or Organ Transplant Social History SMOKING STATUS: Never smoker SECOND HAND EXPOSURE: Yes SUBSTANCE USE: does not use ED Exam Narrative Physical exam: [General: Thin but not emaciated not in any acute distress Head normocephalic HEENT: Within acceptable limits Neck is supple nontender Chest equal chest rise nontender to palpation Respiratory: Clear to auscultation no wheezes crackles or rubs CV: Rate rhythm is regular no murmurs rubs or clicks Abdomen is soft nontender no masses positive bowel sounds all 4 quadrants Back: No CVA tenderness no spinous process tenderness from cervical spine thoracic and lumbar spine Skin: Intact no petechiae rash induration ulceration or crepitus Extremities: Right foot clean dry and intact dressing, cap refill less than 2 seconds in the digits. Moving both lower extremities. Moving all other extremities against resistance cap refill less than 2 seconds neurosensory intact Neuro: Awake alert oriented x3 Glascow coma 15 no focal deficits] Course Quality Measures none Orders Category Date Time Status A1C [Glycohemoglobin w (eAG)] Stat Lab 07/07/24 19:07 Completed Beta Hydroxybutyrate Stat Lab 07/07/24 19:07 Completed Blood Culture (Lab) Stat Lab 07/07/24 19:01 Received C-Reactive Protein Stat Lab 07/07/24 19:07 Completed CBC Stat Lab 07/07/24 19:07 Completed CMP [Comprehensive Metabolic Panel] Stat Lab 07/07/24 19:07 Completed Lactic Acid [Lactate (Lactic Acid)] Stat Lab 07/07/24 19:07 Completed Lactic Acid, 3 HR Stat Lab 07/07/24 22:24 Completed Procalcitonin Stat Lab 07/07/24 19:07 Completed Sed Rate (ESR) Stat Lab 07/07/24 19:07 Completed VBG [Venous Blood Gas] Stat Lab 07/07/24 19:07 Completed Insulin Regular Med 07/07/24 19:58 Discontinued 10 unit SC X1 ONE Insulin Regular Med 07/07/24 22:36 Discontinued 10 unit SC X1 ONE LORazepam [Ativan Inj] Med 07/07/24 22:51 Discontinued 2 mg IVP X1 ONE Ondansetron Inj [Zofran Inj] Med 07/07/24 20:02 Discontinued 4 mg IV X1 ONE Sodium Chloride 0.9% 1000 ml [Ns] 1,000 ml Med 07/07/24 19:57 Discontinued IV 999 mls/hr Sodium Chloride 0.9% 1000 ml [Ns] 1,000 ml Med 07/07/24 19:57 Discontinued IV 999 mls/hr Vital Signs Vital signs: Vital Signs Temperature 98.4 F 07/07/24 18:37 Pulse Rate 110 H 07/07/24 18:37 Respiratory Rate 17 07/07/24 18:37 Blood Pressure 116/62 07/07/24 18:37 Pulse Oximetry (%) 95 07/07/24 18:37 Oxygen Delivery Method Room Air 07/07/24 18:37 [facility] Patient data External records reviewed:: [facility] previous records Clinical information provided by:: patient and family Social determinants that could affect healthcare access:: none Patient has the following chronic illnesses:: Diabetes hypertension hyperlipidemia currently on antibiotics for foot osteomyelitis. How is presenting disease/condition affected by chronic disease/condition?: u neffected by Evaluation data The following diagnostics were reviewed and interpreted by me:: lab results, radiology exam(s) and EKG tracing(s) Lab and/or radiology exams considered but not ordered:: CBC shows no leukocytosis, stable anemia no thrombocytopenia CMP shows a sodium of 130 potassium of 4.1 chloride of 94 CO2 of 24.4 BUN of 26 creatinine of 2.7 blood glucose of 591. VBG shows pH of 7.43 pO2 79 pCO2 of 37 base deficit is 0. Lactic of 4.7 Pro-Gus at 0.10 Beta hydroxy at 0.2 Interpretation Summary: This patient is afebrile nontoxic-appearing not in any acute distress and not any DKA with an elevated lactic of 4.8 I do not feel that this is a sepsis at this time. This may be lactic acidosis secondary to the hyperglycemia. Medications Medications considered but not ordered:: None Medication administrations:: Medication Administration History Discontinued Medications Sodium Chloride (Ns) 1,000 mls @ 999 mls/hr IV .Q1H1M ONE Stop: 07/07/24 20:57 Last Infusion: 07/07/24 21:29 Dose: Infused Documented By: Admin: 07/07/24 20:16 Dose: 999 mls/hr Documented By: TC Sodium Chloride (Ns) 1,000 mls @ 999 mls/hr IV .Q1H1M ONE Stop: 07/07/24 20:57 Last Infusion: 07/07/24 21:29 Dose: Infused Documented By: Admin: 07/07/24 20:16 Dose: 999 mls/hr Documented By: TC Insulin Human Regular (Insulin Hum Regular 1 Unit/0.01 Ml (Per Unit)) 10 unit SC X1 ONE Stop: 07/07/24 19:59 Last Admin: 07/07/24 20:11 Dose: 10 unit Documented By: TC Co-signed By: CVL Insulin Human Regular (Insulin Hum Regular 1 Unit/0.01 Ml (Per Unit)) 10 unit SC X1 ONE Stop: 07/07/24 22:37 Last Admin: 07/07/24 22:40 Dose: 10 unit Documented By: TC Co-signed By: CB Lorazepam (Lorazepam 2 Mg/Ml Vial) 2 mg IVP X1 ONE Stop: 07/07/24 22:52 Last Admin: 07/07/24 23:00 Dose: 2 mg Documented By: TC Ondansetron HCl (Ondansetron Inj 2 Mg/Ml Inj 2 Ml) 4 mg IV X1 ONE; Protocol Stop: 07/07/24 20:03 Last Admin: 07/07/24 20:15 Dose: 4 mg Documented By: ALVARO None Consultations Consultation(s) initiated? (list below): No Diagnosis Differential Diagnosis ED Complaint MDM: Sepsis hyperglycemia DKA Most likely diagnosis given after review of the tests above:: Hyperglycemia Admission Indicated Admission indicated?: not indicated Explain why admission is indicated or not indicated:: Stable for outpatient Admission Request Was there a request for admission?: No Disposition Plan Disposition Plan: Discharge Discharge Attestation Discharge Attestation: The patient and all family members were given an opportunity to ask questions and understood the discharge instructions. Discharge instructions specifically effects, indications for sooner follow up or return to the emergency department, and the expected course of current diagnosis. Patient condition: Stable Medical Decision Making Differential Diagnosis Differential Diagnosis: Sepsis hyperglycemia DKA Lab Data 07/07/24 19:07 07/07/24 19:07 Labs: Lab Results 07/07/24 07/07/24 Range/Units 19:07 22:24 WBC 9.2 (3.8-10.6) Thou/mm3 RBC 5.14 (4.50-5.90) Miln/mm3 Hgb 12.2 L (13.5-16.0) g/dL Hct 38.7 L (41.0-53.0) % MCV 75 L (80-100) fL MCH 23.7 L (25.0-35.0) pg MCHC 31.5 (31.0-37.0) g/dl RDW Std Deviation 45.7 H (35.1-43.9) fL Plt Count 253 D (140-440) Thou/mm3 Neut % (Auto) 78 (37-80) % Lymph % (Auto) 10 (10-50) % Wayne % (Auto) 6 (0-12) % Eos % (Auto) 5 (0-10) % Baso % (Auto) 1 (0-2.5) % Neut # (Auto) 7.2 (1.8-7.7) Thou/mm3 Lymph # (Auto) 0.9 L (1.0-4.8) Thou/mm3 Wayne # (Auto) 0.6 (0.0-0.8) Thou/mm3 Eos # (Auto) 0.5 (0.0-0.5) Thou/mm3 Baso # (Auto) 0.1 (0.0-0.2) Thou/mm3 Immature Gran # (Auto) 0.02 H (0.00-0.00) Thou/mm3 Absolute Nucleated RBC 0.00 (0.00-0.00) Thou/mm3 Immature Gran % 0 (0-0) % Nucleated RBC % 0 (0) /100 WBC ESR 80 H (0-20) mm/hr VBG pH 7.43 (7.33-7.66) VBG pCO2 37 (36-56) mmHg VBG pO2 41 (15-58) mmHg VBG O2 Sat (Mary) 79 L (96-97) % VBG Base Excess 0 (-3-3) Sodium 130 L (136-145) mMol/L Potassium 4.1 (3.4-5.1) mMol/L Chloride 94 L (98-107) mMol/L Carbon Dioxide 24.4 (20.0-31.0) mMol/L Anion Gap 12 (7-16) BUN 26 H (9-23) mg/dL Creatinine 2.7 H (0.6-1.3) mg/dL Estim Creat Clear Calc 29.6 L (>60) mL/min eGFR 27 L (60 - ) See Note BUN/Creatinine Ratio 10 L (12-20) Ratio Glucose 591 H* (74-106) mg/dL Estimated Ave Glu mg/dL 266 H (80-131) mg/dL Hemoglobin A1c 10.9 H (4.8-6.0) % Hgb Calculated Osmolality 292 (275-295) Lactic Acid 4.7 H* 2.5 H (0.4-2.0) mMol/L Calcium 10.7 H (8.3-10.6) mg/dL Corrected Calcium 10.7 H (8.5-10.1) mg/dL Total Bilirubin 0.3 (0.3-1.2) mg/dL AST 10 (0-34) U/L ALT 26 (10-49) U/L Alkaline Phosphatase 132 H (46-116) U/L C-Reactive Prot, Quant < 0.4 (0.0-0.9) mg/dL Total Protein 8.5 H (5.7-8.2) gm/dL Albumin 4.5 D (3.5-5.0) gm/dL Globulin 4.0 H (2.3-3.5) gm/dL Albumin/Globulin Ratio 1.1 L (1.2-2.2) Beta-Hydroxybutyrate/Acetoacetate 0.2 (<0.6) mmol/L Procalcitonin 0.10 (0.0-0.49) ng/ml Discharge Plan Plan Patient Disposition: HOME (Self Care) Patient condition on transfer: Stable Prescriptions/Referrals Prescriptions/Med Rec: No Action baclofen 20 mg tablet 20 mg PO BID Patient Comments: take 1 tablet by mouth twice a day (DME) pen needle, diabetic [Pen Needle] 32 gauge x 5/32 needle See Rx Instructions .Route Qty: 100 0RF Rx Instructions: As directed (DME) FreeStyle Isael 3 Sensor Device See Rx Instructions .Route Qty: 1 0RF Rx Instructions: As directed (DME) FreeStyle Isael 3 [place] Misc See Rx Instructions .Route Qty: 1 0RF Rx Instructions: As directed (DME) blood-glucose meter [Accu-Chek Guide Glucose Meter] Misc See Rx Instructions .ROUTE .MEDSUPPLY Qty: 1 0RF Rx Instructions: As directed (DME) Accu-Chek Guide test strips Strip See Rx Instructions .ROUTE .MEDSUPPLY Qty: 100 0RF Rx Instructions: As directed (DME) lancets [Accu-Chek Softclix Lancets] Mis See Rx Instructions .ROUTE .MEDSUPPLY Qty: 100 0RF Rx Instructions: As directed insulin degludec [Tresiba FlexTouch U-200] 200 unit/mL (3 mL) insulin pen 10 unit subcut QDAY Qty: 9 1RF aspirin 81 mg tablet,chewable 81 mg PO DAILY Patient Comments: chew and swallow 1 tablet by mouth once daily buspirone 15 mg tablet 30 mg PO BID Patient Comments: take 2 tablets by mouth twice a day duloxetine 30 mg capsule,delayed release(DR/EC) 30 mg PO QDAY Patient Comments: take 1 capsule by mouth once daily atorvastatin 40 mg Tablet 40 mg PO QPM Janumet 50-1,000 mg Tablet 1 tab PO BID lisinopril 40 mg tablet 40 mg PO QDAY Qty: 30 0RF (DME) FreeStyle Isael 3 Sensor Device See Rx Instructions .Route Qty: 1 0RF Rx Instructions: As directed tamsulosin 0.4 mg capsule 0.4 mg PO QDAY Qty: 30 0RF (DME) pen needle, diabetic [Pen Needle] 31 gauge x 5/16 needle See Rx Instructions .Route Qty: 100 0RF Rx Instructions: As directed Laxative (bisacodyl) 5 mg tablet 5 mg PO QDAY PRN (Reason: constipation) Qty: 30 0RF Referrals: Kyler Molina MD [Primary Care Provider] - In 1 week Problem List Clinical Impression: Anxiety attack, Hyperglycemia Patient/Caregiver Discharge Instructions Education Materials: ED Diabetes with High Blood Sugar Print Language: Azeri Stand Alone Forms: Shalonda Award Info., Work/School Release, Patient Portal Info Letter PA/[employer] CALENDERER Supervising Physician PA/[employer] CALENDERER Supervising Physician: Keyon Pelaez ENP
[2024-07-07] MEDS: INSULIN HUM REGULAR 1 UNIT/0.01 ML (PER UNIT) 10 UNIT SC ×2 (20:11→22:40)
[2024-07-07] MEDS: ONDANSETRON INJ 2 MG/ML INJ 2 ML 4 MG IV (20:15)
[2024-07-07] MEDS: SODIUM CHLORIDE 0.9% 1000 ML 1,000 ML 999 ML IV ×2 (20:16)
[2024-07-07 20:43] LABS: C-Reactive Protein < 0.4 mg/dL (0.0-0.9)
[2024-07-07 21:35] LABS: Sed Rate (ESR) 80 mm/hr (0-20)
[2024-07-07 22:18] LABS: Reflex Lactate? Y
[2024-07-07 22:47] LABS: Lactic Acid, 3 HR 2.5 mMol/L (0.4-2.0)
[2024-07-07] MEDS: LORazepam 2 MG/ML VIAL IVP (23:00)
[2024-07-07 23:09] VITALS: BP 144/91; PULSE 98; RESP 22; TEMP 36.7; O2SAT 94
== END 2024-07-07 23:10 | disposition home or self-care (01) ==
PROVIDERS: Emergency Provider Emergency Medicine; PCP Family Medicine
DX: F41.9 Anxiety disorder, unspecified (principal); E11.65 Type 2 diabetes mellitus with hyperglycemia; Z79.4 Long term (current) use of insulin; Z79.84 Long term (current) use of oral hypoglycemic drugs
CPT/HCPCS: 36415; 80053; 82010; 82803; 83036; 83605; 84145; 85025; 85652; 86140; 87040; 96361; 96372; 96374; 96375; 99284; J1815; J2060; J2405; J7030

== ENCOUNTER → 2024-07-07 | Outpatient (CLI) | payer MEDICARE, MEDICAID, SELFPAY ==
[2024-07-07 15:33] LABS: Alanine Aminotransferase 30 U/L (10-49); Albumin/Globulin Ratio 1.2 (1.2-2.2); Alkaline Phosphatase 132 U/L (46-116); Anion Gap 11 (7-16); Aspartate Amino Transferase 10 U/L (0-34); BUN/Creatinine Ratio 12 Ratio (12-20); Bilirubin,Total 0.3 mg/dL (0.3-1.2); Blood Urea Nitrogen 27 mg/dL (9-23); C-Reactive Protein < 0.4 mg/dL (0.0-0.9); Carbon Dioxide 27.4 mMol/L (20.0-31.0); Chloride 95 mMol/L (98-107); Creatinine (Component) 2.3 mg/dL (0.6-1.3); Globulin 3.4 gm/dL (2.3-3.5); Osmolality,Calculated 300 (275-295); Potassium 3.9 mMol/L (3.4-5.1); Sodium 133 mMol/L (136-145); Total Protein 7.4 gm/dL (5.7-8.2); eGFR 33 See Note
[2024-07-07 15:35] LABS: Glucose 618 mg/dL (74-106)
[2024-07-07 16:05] LABS: Basophils # (Auto) 0.1 Thou/mm3 (0.0-0.2); Basophils % (Auto) 1 % (0-2.5); Eosinophils # (Auto) 1.1 Thou/mm3 (0.0-0.5); Eosinophils % (Auto) 11 % (0-10); Hematocrit 37.1 % (41.0-53.0); Hemoglobin 11.7 g/dL (13.5-16.0); Immature Granulocytes % (Auto) 0 % (0-0); Immature Granulocytes Auto 0.02 Thou/mm3 (0.00-0.00); Lymphocytes # (Auto) 1.7 Thou/mm3 (1.0-4.8); Lymphocytes % (Auto) 17 % (10-50); Mean Corpuscular HGB Conc 31.5 g/dl (31.0-37.0); Mean Corpuscular Hemoglobin 24.1 pg (25.0-35.0); Mean Corpuscular Volume 76 fL (80-100); Monocytes # (Auto) 0.7 Thou/mm3 (0.0-0.8); Monocytes % (Auto) 8 % (0-12); Neutrophils # (Auto) 6.2 Thou/mm3 (1.8-7.7); Neutrophils % (Auto) 64 % (37-80); Nucleated Red Blood Cell % 0 /100 WBC (0); Platelet Count 220 Thou/mm3 (140-440); RDW Standard Deviation 46.7 fL (35.1-43.9); Red Blood Count 4.86 Miln/mm3 (4.50-5.90); White Blood Count 9.7 Thou/mm3 (3.8-10.6)
[2024-07-07 16:15] LABS: Sed Rate (ESR) 59 mm/hr (0-20)
[2024-07-07 19:14] LABS: Glucose Estimated Average 266 mg/dL (80-131); Hemoglobin A1C 10.9 % Hgb (4.8-6.0)
== END | disposition home or self-care (01) ==
PROVIDERS: Referring Provider Student in an Organized Health Care Education/Training Program; Visit Provider Student in an Organized Health Care Education/Training Program
DX: E11.621 Type 2 diabetes mellitus with foot ulcer (principal); L02.611 Cutaneous abscess of right foot
CPT/HCPCS: 36415; 80053; 83036; 85025; 85652; 86140

== ENCOUNTER → 2024-07-07 | Outpatient (CLI) | payer MEDICARE, MEDICAID, SELFPAY | END | disposition home or self-care (01) | PROVIDERS: PCP Family Medicine; Referring Provider Family Medicine; Visit Provider Student in an Organized Health Care Education/Training Program | DX: L97.512 Non-pressure chronic ulcer of other part of right foot with fat layer exposed (principal); E11.40 Type 2 diabetes mellitus with diabetic neuropathy, unspecified; M19.042 Primary osteoarthritis, left hand; R60.0 Localized edema; L02.611 Cutaneous abscess of right foot; I10 Essential (primary) hypertension; I67.89 Other cerebrovascular disease; G81.91 Hemiplegia, unspecified affecting right dominant side; I73.9 Peripheral vascular disease, unspecified; D64.9 Anemia, unspecified; Z79.84 Long term (current) use of oral hypoglycemic drugs; Z79.4 Long term (current) use of insulin | CPT/HCPCS: 99213; A9270; G0463 ==

== ENCOUNTER → 2024-07-14 | Outpatient (CLI) | payer MEDICARE, MEDICAID, SELFPAY | END | disposition home or self-care (01) | LOC: SWHD 08:10 | PROVIDERS: PCP Family Medicine; Referring Provider Family Medicine; Visit Provider Student in an Organized Health Care Education/Training Program | DX: L97.512 Non-pressure chronic ulcer of other part of right foot with fat layer exposed (principal); M19.042 Primary osteoarthritis, left hand; R60.0 Localized edema; L02.611 Cutaneous abscess of right foot; I10 Essential (primary) hypertension; I67.89 Other cerebrovascular disease; G81.91 Hemiplegia, unspecified affecting right dominant side; I73.9 Peripheral vascular disease, unspecified; D64.9 Anemia, unspecified; Z79.84 Long term (current) use of oral hypoglycemic drugs; Z79.4 Long term (current) use of insulin | CPT/HCPCS: 99213; A9270; G0463 ==

== ENCOUNTER → 2024-07-21 | Outpatient (CLI) | payer MEDICARE, MEDICAID, SELFPAY | END | disposition home or self-care (01) | LOC: SWHD 08:09 | PROVIDERS: PCP Family Medicine; Referring Provider Family Medicine; Visit Provider Surgery | DX: L97.512 Non-pressure chronic ulcer of other part of right foot with fat layer exposed (principal); M19.042 Primary osteoarthritis, left hand; R60.0 Localized edema; L02.611 Cutaneous abscess of right foot; I10 Essential (primary) hypertension; I67.89 Other cerebrovascular disease; G81.91 Hemiplegia, unspecified affecting right dominant side; I73.9 Peripheral vascular disease, unspecified; D64.9 Anemia, unspecified; Z79.84 Long term (current) use of oral hypoglycemic drugs; Z79.4 Long term (current) use of insulin | CPT/HCPCS: 99213; A9270; G0463 ==

== ENCOUNTER → 2024-07-28 | Outpatient (CLI) | payer MEDICARE, MEDICAID, SELFPAY | END | disposition home or self-care (01) | LOC: SWHD 08:02 | PROVIDERS: PCP Family Medicine; Referring Provider Family Medicine; Visit Provider Student in an Organized Health Care Education/Training Program | DX: L97.512 Non-pressure chronic ulcer of other part of right foot with fat layer exposed (principal); M19.042 Primary osteoarthritis, left hand; R60.0 Localized edema; L02.611 Cutaneous abscess of right foot; I10 Essential (primary) hypertension; I67.89 Other cerebrovascular disease; G81.91 Hemiplegia, unspecified affecting right dominant side; I73.9 Peripheral vascular disease, unspecified; D64.9 Anemia, unspecified; Z79.84 Long term (current) use of oral hypoglycemic drugs; Z79.4 Long term (current) use of insulin | CPT/HCPCS: 99213; A9270; G0463 ==

== ENCOUNTER → 2024-08-04 | Outpatient (CLI) | payer MEDICARE, MEDICAID, SELFPAY | END | disposition home or self-care (01) | LOC: SWHD 08:14 | PROVIDERS: PCP Family Medicine; Referring Provider Family Medicine; Visit Provider Student in an Organized Health Care Education/Training Program | DX: E11.621 Type 2 diabetes mellitus with foot ulcer (principal); L97.512 Non-pressure chronic ulcer of other part of right foot with fat layer exposed; M19.042 Primary osteoarthritis, left hand; R60.0 Localized edema; L02.611 Cutaneous abscess of right foot; I10 Essential (primary) hypertension; I67.89 Other cerebrovascular disease; G81.91 Hemiplegia, unspecified affecting right dominant side; I73.9 Peripheral vascular disease, unspecified; D64.9 Anemia, unspecified; Z79.4 Long term (current) use of insulin | CPT/HCPCS: 99213; G0463 ==

== ENCOUNTER → 2024-09-29 | Outpatient (CLI) | payer MEDICARE, MEDICAID, SELFPAY | END | disposition home or self-care (01) | LOC: SWHD 08:06 | PROVIDERS: Visit Provider Student in an Organized Health Care Education/Training Program | DX: S91.301A Unspecified open wound, right foot, initial encounter (principal); X58.XXXA Exposure to other specified factors, initial encounter; E11.40 Type 2 diabetes mellitus with diabetic neuropathy, unspecified; D64.9 Anemia, unspecified; M19.90 Unspecified osteoarthritis, unspecified site; Z86.73 Personal history of transient ischemic attack (TIA), and cerebral infarction without residual deficits; I10 Essential (primary) hypertension; M19.042 Primary osteoarthritis, left hand; Z79.84 Long term (current) use of oral hypoglycemic drugs; Z79.4 Long term (current) use of insulin | CPT/HCPCS: 97597; 99213; A9270; G0463 ==

== ENCOUNTER → 2024-10-06 | Outpatient (CLI) | payer MEDICARE, MEDICAID, SELFPAY | END | disposition home or self-care (01) | LOC: SWHD 08:13 | PROVIDERS: PCP Family Medicine; Referring Provider Family Medicine; Visit Provider Student in an Organized Health Care Education/Training Program | DX: S91.301A Unspecified open wound, right foot, initial encounter (principal); X58.XXXA Exposure to other specified factors, initial encounter; E11.40 Type 2 diabetes mellitus with diabetic neuropathy, unspecified; D64.9 Anemia, unspecified; M19.90 Unspecified osteoarthritis, unspecified site; Z86.73 Personal history of transient ischemic attack (TIA), and cerebral infarction without residual deficits; I10 Essential (primary) hypertension; M19.042 Primary osteoarthritis, left hand; Z79.4 Long term (current) use of insulin; Z79.84 Long term (current) use of oral hypoglycemic drugs | CPT/HCPCS: 99213; G0463 ==

== ENCOUNTER → 2024-10-20 | Outpatient (CLI) | payer MEDICARE, MEDICAID, SELFPAY | END | disposition home or self-care (01) | LOC: SWHD 08:36 | PROVIDERS: PCP Family Medicine; Referring Provider Family Medicine; Visit Provider Student in an Organized Health Care Education/Training Program | DX: S91.301A Unspecified open wound, right foot, initial encounter (principal); X58.XXXA Exposure to other specified factors, initial encounter; E11.40 Type 2 diabetes mellitus with diabetic neuropathy, unspecified; D64.9 Anemia, unspecified; M19.90 Unspecified osteoarthritis, unspecified site; Z86.73 Personal history of transient ischemic attack (TIA), and cerebral infarction without residual deficits; I10 Essential (primary) hypertension; M19.042 Primary osteoarthritis, left hand; Z79.4 Long term (current) use of insulin; Z79.84 Long term (current) use of oral hypoglycemic drugs | CPT/HCPCS: 99213; A9270; G0463 ==

== ENCOUNTER 2024-10-27 03:41 | Emergency (ER) | payer MEDICARE, MEDICAID, SELFPAY ==
[2024-10-27 03:49] VITALS: BP 142/86; PULSE 70; PULSE 95; RESP 18; TEMP 36.7; O2SAT 97
--- NOTE | 2024-10-27 04:04 | EKG_ITS ---
[facility] Test Date: 2024-10-27 Pat Name: BREANNA KELLER Department: Room: - Gender: Male Rent Collector: : 1965 Requested By: Filiberto Downs Order Number: [id number] Reading MD: Filiberto Downs Measurements Intervals [place] Rate: 88 P: TN: QRS: 9 QRSD: 82 T: 61 QT: 332 QTc: 403 Interpretive Statements SINUS RHYTHM WITH 2ND DEGREE AV BLOCK, 2:1 OR MOBITZ TYPE II NONSPECIFIC T-WAVE ABNORMALITY CRITICAL TEST RESULT Compared to ECG 05/07/2024 15:39:40 No significant changes /store/S0/[id number].pdf
--- NOTE | 2024-10-27 04:05 | PD.EDRME ---
Rapid Medical Screening Exam RME Arrival date/time: 10/27/24 03:41 59 yo m present to ED for c/o of elevated blood glucose, pt report vomiting and bodyaches I have greeted and performed a focused initial assessment of this patient. A comprehensive ED assessment and evaluation of the patient, analysis of all test results, and completion of the medical decision making process will be conducted by additional ED providers. Chief Complaint: General Adult/Misc Complain Time Seen by Provider: 10/27/24 03:59
--- NOTE | 2024-10-27 04:36 | XR_ITS ---
Examination: AP chest single view Technique one AP portable upright chest single view Exam date and time: October 27, 2024 0444 hrs. Indications: Shortness of breath today. Findings: Normal heart size. Lungs are clear. The osseous structures are intact Impression: No active disease
--- NOTE | 2024-10-27 04:37 | XR_ITS ---
Examination: Abdomen sonogram, Limited Date and time of exam: October 27, 2024 0532 hrs. Indications: Onset right upper abdominal pain today Technique: Real-time lugo scale transabdominal sonographic images of the upper abdomen obtained. Findings: Normal gallbladder Common bile duct enlarged 0.8 cm Pancreas by bowel gas Liver 17.0 cm fatty infiltration Normal hepatopedal portal venous flow Patent IVC Impression: Normal gallbladder Enlarged common bile duct 0.8 cm although no definite stones If biliary colic is a clinical consideration, suggest MRCP follow-up
--- NOTE | 2024-10-27 04:40 | PD.EDABDPN ---
ED Abdominal Pain RME/HPI General Chief Complaint: General Adult/Misc Complain Stated complaint: ALTERED Time seen by provider: 10/27/24 03:59 Arrival date/time: 10/27/24 03:41 RME / HPI RME / HPI narrative: 10/27/24 03:41 59 yo m present to ED for c/o of elevated blood glucose, pt report vomiting and bodyaches I have greeted and performed a focused initial assessment of this patient. A comprehensive ED assessment and evaluation of the patient, analysis of all test results, and completion of the medical decision making process will be conducted by additional ED providers. This section includes all my notes and documentations, including HPI, PE, and ED course. Livan Soto MD HPI: 59-year-old male here with multiple concerns. He reports about 24-hour history of high sugar levels and vomiting and abdominal pain and coughing and shortness of breath. Has diabetes. Reports having asthma and COPD. No other complaints. ROS: All negative except as documented in HPI. Physical Exam: General: Alert and oriented. Dry heaving. Eyes: Conjunctivae and lids clear. ENT: No nasal congestion. Neck: Supple. Heart: RRR. Lungs: No respiratory distress. Moderately decreased air movement. Diffuse wheezing. Abdomen: Soft with epigastric tenderness.. Normal bowel sounds. No distension. No rebound or guarding. Back: No CVA tenderness. Skin: Warm and dry. Neuro: Alert and oriented X 3. I ordered IV fluid, Zofran, regular insulin 5 units IV, Solu-Medrol, DuoNeb and diagnostic tests. At 6 AM 10/27/24, the care of the patient was transferred to Dr. Yang. Livan Soto MD Related Data Home Medications ?Medication ?Instructions ?Recorded ?Confirmed aspirin 81 mg chewable tablet 81 mg PO DAILY 07/23/23 04/30/24 buspirone 15 mg tablet 30 mg PO BID 07/23/23 04/30/24 duloxetine 30 mg capsule,delayed 30 mg PO QDAY 07/23/23 04/30/24 release atorvastatin 40 mg tablet 40 mg PO QPM 01/13/24 04/30/24 sitagliptin phosphate 50 1 tab PO BID 01/13/24 04/30/24 mg-metformin 1,000 mg tablet (Janumet) baclofen 20 mg tablet 20 mg PO BID 03/30/24 04/30/24 Previous Rx's ?Medication ?Instructions ?Recorded blood-glucose sensor (FreeStyle #1 ea 01/16/24 Isael 3 Sensor device) lisinopril 40 mg tablet 40 mg PO QDAY #30 tabs 01/16/24 tamsulosin 0.4 mg capsule 0.4 mg PO QDAY #30 caps 01/16/24 pen needle, diabetic 31 gauge x #100 ea 01/17/24 516 (Pen Needle) bisacodyl 5 mg tablet (Laxative 5 mg PO QDAY PRN constipation #30 02/03/24 (bisacodyl)) tabs blood sugar diagnostic (Accu-Chek #100 ea 03/31/24 Guide test strips) blood-glucose meter (Accu-Chek #1 ea 03/31/24 Guide Glucose Meter) blood-glucose meter,continuous #1 ea 03/31/24 (FreeStyle Isael 3 Empire) blood-glucose sensor (FreeStyle #1 ea 03/31/24 Isael 3 Sensor device) lancets (Accu-Chek Softclix #100 ea 03/31/24 Lancets) pen needle, diabetic 32 gauge x #100 ea 03/31/24 (Pen Needle) insulin degludec 200 unit/mL (3 10 unit (0.05 mL) subcut QDAY #9 mL 05/01/24 mL) subcutaneous pen (Tresiba FlexTouch U-200 insulin) Allergies Allergy/AdvReac Type Severity Reaction Status Date / Time No Known Allergies Allergy Verified 07/07/24 17:55 Course Quality Measures none Orders Category Date Time Status Bedside COVID-19 Antigen Test NOW Care 10/27/24 04:32 Active Bedside Influenza A&B Antigen Test NOW Care 10/27/24 04:[address] Screening NOW Care 10/27/24 04:36 Active Saline [Insert IV] NOW Care 10/27/24 04:33 Active Straight [In and Out Catheter] X1 Care 10/27/24 04:[address] chest abdomen pelvis w Stat Exams 10/27/24 04:36 Ordered EKG (ED Only) Stat Exams 10/27/24 04:04 Draft US gall bladder Stat Exams 10/27/24 04:37 Ordered XR chest 1V portable Stat Exams 10/27/24 04:36 Ordered ABG [Arterial Blood Gas] Stat Lab 10/27/24 04:37 Ordered Amylase Stat Lab 10/27/24 04:37 Ordered BNP [B-Type Natriuretic Peptide] Stat Lab 10/27/24 04:37 Ordered Beta Hydroxybutyrate Stat Lab 10/27/24 04:37 Ordered Bilirubin,Direct Stat Lab 10/27/24 04:37 Ordered CBC Stat Lab 10/27/24 04:38 Ordered CMP [Comprehensive Metabolic Panel] Stat Lab 10/27/24 04:37 Ordered Free T4 (Free Thyroxine) Stat Lab 10/27/24 04:37 Ordered Hemoglobin A1C [Glycohemoglobin w (eAG)] Stat Lab 10/27/24 04:38 Ordered Lipase Stat Lab 10/27/24 04:37 Ordered Magnesium Stat Lab 10/27/24 04:37 Ordered TSH [Thyroid Stimulating Hormone] Stat Lab 10/27/24 04:37 Ordered Troponin I Stat Lab 10/27/24 04:37 Ordered UA, C/S IF [Urinalysis, C/S if Indicated] Stat Lab 10/27/24 04:32 Ordered UA, C/S IF [Urinalysis, C/S if Indicated] Stat Lab 10/27/24 04:38 Ordered Albuterol/Ipratr Rt Radha [Duoneb Rt Radha] Med 10/27/24 04:34 Once 3 ml INH X1 ONE Insulin Regular Med 10/27/24 04:33 Once 5 unit IV X1 ONE MethylPREDNISolone.* [SoluMEDROL Inj] Med 10/27/24 04:34 Discontinued 125 mg IM X1 ONE MethylPREDNISolone.* [SoluMEDROL Inj] Med 10/27/24 04:35 Once 125 mg IVP X1 ONE Ondansetron Inj [Zofran Inj] Med 10/27/24 04:36 Once 4 mg IV X1 ONE Ondansetron Odt [Zofran Odt] Med 10/27/24 04:06 Discontinued 4 mg PO X1 ONE Sodium Chloride 0.9% 1000 ml [Ns] 1,000 ml Med 10/27/24 04:33 Ordered IV 999 mls/hr Vital Signs Vital signs: Vital Signs Temperature 98.0 F 10/27/24 03:49 Pulse Rate 95 10/27/24 03:49 Respiratory Rate 18 10/27/24 03:49 Blood Pressure 142/86 H 10/27/24 03:49 Pulse Oximetry (%) 97 10/27/24 03:49 Abdominal Pain MDM MDM Narrative MDM Narrative:: 59-year-old male here with multiple concerns. He reports about 24-hour history of high sugar levels and vomiting and abdominal pain and coughing and shortness of breath. Has diabetes. Reports having asthma and COPD. No other complaints. Patient data External records reviewed:: [facility] previous records and EMS form Clinical information provided by:: patient and EMS Social determinants that could affect healthcare access:: other (specify) (Difficult speech due to CVA.) Patient has the following chronic illnesses:: CVA and DM. How is presenting disease/condition affected by chronic disease/condition?: exacerbated by Evaluation data The following diagnostics were reviewed and interpreted by me:: other (specify) (Diagnostic tests pending.) Lab and/or radiology exams considered but not ordered:: None Interpretation Summary: Diagnostic tests pending. Medications / Prescriptions Medications or Prescriptions considered but not ordered:: None Medication administrations:: Medication Administration History Albuterol/Ipratropium (Albuterol/Ipratropium (Duoneb) Rt Radha 3 Ml Nebu) 3 ml INH X1 ONE Stop: 10/27/24 04:35 Sodium Chloride (Ns) 1,000 mls @ 999 mls/hr IV .Q1H1M ONE Stop: 10/27/24 05:33 Insulin Human Regular (Insulin Hum Regular 1 Unit/0.01 Ml (Per Unit)) 5 unit IV X1 ONE Stop: 10/27/24 04:34 Methylprednisolone Sodium Succinate (Methylprednisolone Sod Succ 62.5 Mg/Ml 2ml Vial) 125 mg IVP X1 ONE Stop: 10/27/24 04:36 Ondansetron HCl (Ondansetron Inj 2 Mg/Ml Inj 2 Ml) 4 mg IV X1 ONE; Protocol Stop: 10/27/24 04:37 Discontinued Medications Methylprednisolone Sodium Succinate (Methylprednisolone Sod Succ 62.5 Mg/Ml 2ml Vial) 125 mg IM X1 ONE Stop: 10/27/24 04:35 Ondansetron HCl (Ondansetron Odt 4 Mg Tabrap) 4 mg PO X1 ONE; Protocol Stop: 10/27/24 04:07 Last Admin: 10/27/24 04:23 Dose: Not Given Documented By: CVL Non-Admin Reason: Cancelled by Provider I ordered IV fluid, Zofran, insulin, Solu-Medrol, and DuoNeb. Consultations Consultation(s) initiated? (list below): No Diagnosis Differential diagnosis abdominal pain: acute appendicitis, calculus of kidney, constipation, diverticulitis, endometriosis, gastroenteritis, pancreatitis, small bowel obstruction and other (NE, CHF, DKA, UTI, pneumonia, sepsis) Most likely diagnosis given after review of the tests above:: Diagnostic test results are pending. Admission Indicated Admission indicated?: not indicated Explain why admission is indicated or not indicated:: Diagnostic test results are pending. Admission Request Was there a request for admission?: No Disposition Plan Disposition Plan: other (specify) (Care of the patient was transferred to Dr. Yang. ) Discharge Plan Prescriptions/Referrals Prescriptions/Med Rec: No Action baclofen 20 mg tablet 20 mg PO BID Patient Comments: take 1 tablet by mouth twice a day (DME) pen needle, diabetic [Pen Needle] 32 gauge x 5/32 needle See Rx Instructions .Route Qty: 100 0RF Rx Instructions: As directed (DME) FreeStyle Isael 3 Sensor Device See Rx Instructions .Route Qty: 1 0RF Rx Instructions: As directed (DME) FreeStyle Isael 3 Empire Misc See Rx Instructions .Route Qty: 1 0RF Rx Instructions: As directed (DME) blood-glucose meter [Accu-Chek Guide Glucose Meter] Misc See Rx Instructions .ROUTE .MEDSUPPLY Qty: 1 0RF Rx Instructions: As directed (DME) Accu-Chek Guide test strips Strip See Rx Instructions .ROUTE .MEDSUPPLY Qty: 100 0RF Rx Instructions: As directed (DME) lancets [Accu-Chek Softclix Lancets] Misc See Rx Instructions .ROUTE .MEDSUPPLY Qty: 100 0RF Rx Instructions: As directed insulin degludec [Tresiba FlexTouch U-200] 200 unit/mL (3 mL) insulin pen 10 unit subcut QDAY Qty: 9 1RF aspirin 81 mg tablet,chewable 81 mg PO DAILY Patient Comments: chew and swallow 1 tablet by mouth once daily buspirone 15 mg tablet 30 mg PO BID Patient Comments: take 2 tablets by mouth twice a day duloxetine 30 mg capsule,delayed release(DR/EC) 30 mg PO QDAY Patient Comments: take 1 capsule by mouth once daily atorvastatin 40 mg Tablet 40 mg PO QPM Janumet 50-1,000 mg Tablet 1 tab PO BID lisinopril 40 mg tablet 40 mg PO QDAY Qty: 30 0RF (DME) FreeStyle Isael 3 Sensor Device See Rx Instructions .Route Qty: 1 0RF Rx Instructions: As directed tamsulosin 0.4 mg capsule 0.4 mg PO QDAY Qty: 30 0RF (DME) pen needle, diabetic [Pen Needle] 31 gauge x 5/16 needle See Rx Instructions .Route Qty: 100 0RF Rx Instructions: As directed Laxative (bisacodyl) 5 mg tablet 5 mg PO QDAY PRN (Reason: constipation) Qty: 30 0RF Referrals: No Primary/Family,Physician [Primary Care Provider] - In 1 week Problem List Clinical Impression: Hyperglycemia, Abdominal pain, Bronchospasm, Vomiting Patient/Caregiver Discharge Instructions Print Language: Citizen Of [place]
[2024-10-27 04:58] VITALS: PULSE 94; RESP 18; O2SAT 99
[2024-10-27] MEDS: ALBUTEROL/IPRATROPIUM (Duoneb) RT SOL 3 ML NEBU INH (04:58)
[2024-10-27 05:07] LABS: Collection Type, Urine Clean Catch
[2024-10-27 05:15] LABS: Base Excess -2 (-3-3); HCO3 25 mEq/L (20-26); Inspired Oxygen, FIO2 21 %; O2 Saturation 99 % (91-98); PCO2 49 mmHg (32.0-48.0); PO2 115 mmHg (83-108); pH, Arterial 7.32 (7.35-7.45)
[2024-10-27 05:23] LABS: Allen Test Performed/OK; Puncture Site Left Radial
[2024-10-27 05:33] LABS: Beta Hydroxybutyrate 0.3 mmol/L (<0.6)
[2024-10-27 05:36] LABS: Bilirubin,Urine Negative (Negative); Blood,Urine Negative (Negative); Clarity,Urine Turbid (Clear/Hazy); Color,Urine Lt-Yellow (Lt Yel-Yel); Culture Indicated,Urine Not Indicated; Glucose, Urine 3+ (Negative); Hyaline Casts,Urine < 1 /hpf (0-1); Ketones,Urine Negative (Negative); Leukocyte Esterase,Urine Negative (Negative); Nitrite,Urine Negative (Negative); PH,Urine 5.5 (5.0-7.0); Protein,Urine 2+ (Neg - Trace); RBC,Urine 3 /hpf (0-3); Squamous Epithelial Cell,Urine 1 /hpf (0-5); Urobilinogen,Urine Negative mg/dL (0.0-1.0); WBC,Urine 3 /hpf (0-5)
[2024-10-27 05:39] LABS: Glucose Estimated Average 269 mg/dL (80-131)
[2024-10-27 05:41] LABS: Basophils # (Auto) 0.1 Thou/mm3 (0.0-0.2); Basophils % (Auto) 0 % (0-2.5); Eosinophils # (Auto) 0.5 Thou/mm3 (0.0-0.5); Eosinophils % (Auto) 3 % (0-10); Hematocrit 41.6 % (41.0-53.0); Hemoglobin 12.9 g/dL (13.5-16.0); Immature Granulocytes % (Auto) 1 % (0-0); Immature Granulocytes Auto 0.09 Thou/mm3 (0.00-0.00); Lymphocytes # (Auto) 1.7 Thou/mm3 (1.0-4.8); Lymphocytes % (Auto) 9 % (10-50); Mean Corpuscular Hemoglobin 23.1 pg (25.0-35.0); Mean Corpuscular Volume 75 fL (80-100); Monocytes # (Auto) 0.6 Thou/mm3 (0.0-0.8); Monocytes % (Auto) 3 % (0-12); Neutrophils # (Auto) 16.6 Thou/mm3 (1.8-7.7); Neutrophils % (Auto) 85 % (37-80); Nucleated Red Blood Cell % 0 /100 WBC (0); Platelet Count 294 Thou/mm3 (140-440); RDW Standard Deviation 50.4 fL (35.1-43.9); Red Blood Count 5.58 Miln/mm3 (4.50-5.90); White Blood Count 19.6 Thou/mm3 (3.8-10.6)
[2024-10-27 05:42] LABS: B-Type Natriuretic Peptide < 20 pg/mL (0-100)
[2024-10-27 05:44] LABS: Alanine Aminotransferase 13 U/L (10-49); Albumin, Serum 4.5 gm/dL (3.5-5.0); Alkaline Phosphatase 125 U/L (46-116); Amylase 131 U/L (30-118); Anion Gap 11 (7-16); Aspartate Amino Transferase 16 U/L (0-34); BUN/Creatinine Ratio 15 Ratio (12-20); Bilirubin,Direct 0.1 mg/dL (0.0-0.3); Bilirubin,Total 0.5 mg/dL (0.3-1.2); Blood Urea Nitrogen 47 mg/dL (9-23); Calcium 9.9 mg/dL (8.3-10.6); Calcium (Corrected) 9.9 mg/dL (8.5-10.1); Chloride 102 mMol/L (98-107); Creatinine (Component) 3.2 mg/dL (0.6-1.3); Free T4 (Free Thyroxine) 1.28 ng/dL (0.89-1.76); Globulin 4.3 gm/dL (2.3-3.5); Glucose 370 mg/dL (74-106); Lipase 77 U/L (12-53); Magnesium 1.7 mg/dL (1.6-2.6); Osmolality,Calculated 302 (275-295); Potassium 4.6 mMol/L (3.4-5.1); Sodium 138 mMol/L (136-145); Thyroid Stimulating Hormone 3.35 uIU/mL (0.55-4.78); Total Protein 8.8 gm/dL (5.7-8.2); Troponin I < 0.020 ng/mL (0.0-0.045); eGFR 22 See Note
--- NOTE | 2024-10-27 06:31 | PD.EDADDENDU ---
Emergency Room Addendum Addendum Narrative: 0600: Care assumed from Dr. Soto, the previous shift emergency physician. Past medical, surgical, social and family history reviewed. Vitals and home medications reviewed. I will assume the care of the patient at this time, pending remainder of diagnostic tests and final disposition. Please refer to the emergency department record for history and examination from initial visit.? Physical exam by me shows patient under no acute distress at this time. Will give flagyl and zofran, patient to resume his diabetic medications, and will be discharged home. 0849: Patient remains clinically stable throughout the emergency department visit. Re-assessment at the time of disposition demonstrates that the patient is in no acute distress. We reviewed all the results, analysis, and treatment plans. Patient is amenable to discharge. Strict return precautions were outlined. Patient was discharged in stable condition. Diagnoses: - Proctitis - Rectal wall thickening - Hyperglycemia - CKD - Leukocytosis RADIOLOGY Procedure(s): US gall bladder Accession Number(s): [id number] cc: Livan Soto MD; Yandel Knight MD; NO PRIMARY/FAMILY,PHYSICIAN~ Examination: Abdomen sonogram, Limited Date and time of exam: October 27, 2024 0532 hrs. Indications: Onset right upper abdominal pain today Technique: Real-time lugo scale transabdominal sonographic images of the upper abdomen obtained. Findings: Normal gallbladder Common bile duct enlarged 0.8 cm Pancreas by bowel gas Liver 17.0 cm fatty infiltration Normal hepatopedal portal venous flow Patent IVC Impression: Normal gallbladder Enlarged common bile duct 0.8 cm although no definite stones If biliary colic is a clinical consideration, suggest MRCP follow-up Dictated By: Yandel Knight MD Procedure(s): XR chest 1V portable Accession Number(s): [id number] cc: Livan Soto MD; Yandel Knight MD; NO PRIMARY/FAMILY,PHYSICIAN~ Examination: AP chest single view Technique one AP portable upright chest single view Exam date and time: October 27, 2024 0444 hrs. Indications: Shortness of breath today. Findings: Normal heart size. Lungs are clear. The osseous structures are intact Impression: No active disease Dictated By: Yandel Knight MD Procedure(s): CT abdomen pelvis wo [facility] Accession Number(s): [id number] cc: Mynor Yang MD; Yandel Knight MD; NO PRIMARY/FAMILY,PHYSICIAN~ Examination: CT abdomen and pelvis without contrast. Coronal 3-D reconstructions. Sagittal 2-D reconstructions. Date and time of exam:October 27, 2024 0735 hrs. Indications: Onset abdominal pain today CTDI: vol (mGy): 9.59 DLP: (mGycm): 585 Technique: Axial images of the abdomen have been obtained, 3 mm slice thickness Intravenous contrast material has not been administered. Low dose protocols were performed. One or more of the following dose reduction techniques were used; automated exposure control, adjustment of the mA and/or KV according to patient size, use of iterative reconstruction technique. Findings: No focal liver or splenic lesions No gallstones No pancreatic or adrenal mass Moderate renal parenchymal scar formation, no renal calculi or hydronephrosis Aorta normal size No bowel obstruction No diverticulitis Abundant stool in the rectosigmoid especially rectum with thickening the rectal wall Large fat-containing right inguinal hernia Urinary bladder wall thickening up to 6 mm Smaller fat-containing left inguinal hernia, left testis possibly in the inguinal canal Moderate osteopenia Impression: Moderate renal parenchymal scar formation No bowel obstruction Large amounts of stool in the rectum with thickening the rectal wall, differential would include proctitis Large fat-containing right inguinal hernia Small fat-containing umbilical hernia with possible left testis in the inguinal canal, recommend testicular sonography follow-up Thickening of urinary bladder wall, differential would include cystitis Dictated By: Yandel Knight MD
[2024-10-27] MEDS: MethylPREDNISolone SOD SUCC 62.5 MG/ML 2ML VIAL 125 MG IVP (06:33)
[2024-10-27] MEDS: INSULIN HUM REGULAR 1 UNIT/0.01 ML (PER UNIT) 5 UNIT IV (06:33)
[2024-10-27] MEDS: ONDANSETRON INJ 2 MG/ML INJ 2 ML 4 MG IV (06:33)
[2024-10-27] MEDS: SODIUM CHLORIDE 0.9% 1000 ML 1,000 ML 999 ML IV (06:34)
[2024-10-27 06:49] VITALS: BP 121/71; PULSE 109; RESP 19; TEMP 37.2; O2SAT 99
--- NOTE | 2024-10-27 06:50 | XR_ITS ---
Examination: CT abdomen and pelvis without contrast. Coronal 3-D reconstructions. Sagittal 2-D reconstructions. Date and time of exam:October 27, 2024 0735 hrs. Indications: Onset abdominal pain today CTDI: vol (mGy): 9.59 DLP: (mGycm): 585 Technique: Axial images of the abdomen have been obtained, 3 mm slice thickness Intravenous contrast material has not been administered. Low dose protocols were performed. One or more of the following dose reduction techniques were used; automated exposure control, adjustment of the mA and/or KV according to patient size, use of iterative reconstruction technique. Findings: No focal liver or splenic lesions No gallstones No pancreatic or adrenal mass Moderate renal parenchymal scar formation, no renal calculi or hydronephrosis Aorta normal size No bowel obstruction No diverticulitis Abundant stool in the rectosigmoid especially rectum with thickening the rectal wall Large fat-containing right inguinal hernia Urinary bladder wall thickening up to 6 mm Smaller fat-containing left inguinal hernia, left testis possibly in the inguinal canal Moderate osteopenia Impression: Moderate renal parenchymal scar formation No bowel obstruction Large amounts of stool in the rectum with thickening the rectal wall, differential would include proctitis Large fat-containing right inguinal hernia Small fat-containing umbilical hernia with possible left testis in the inguinal canal, recommend testicular sonography follow-up Thickening of urinary bladder wall, differential would include cystitis
[2024-10-27 07:43] VITALS: BMI 34.1
[2024-10-27 08:29] VITALS: BP 116/55; PULSE 111; RESP 18; TEMP 36.7; O2SAT 97
== END 2024-10-27 10:00 | disposition home or self-care (01) ==
PROVIDERS: Emergency Provider Emergency Medicine
DX: E11.65 Type 2 diabetes mellitus with hyperglycemia (principal); J98.01 Acute bronchospasm
CPT/HCPCS: 36415; 36600; 71045; 74176; 76705; 80053; 81001; 82010; 82150; 82248; 82803; 83036; 83690; 83735; 83880; 84439; 84443; 84484; 85025; 87400; 87811; 93005; 94640; 96361; 96374; 96375; 99284; A9270; J1815; J2405; J2919; J7030

== ENCOUNTER → 2024-11-03 | Outpatient (CLI) | payer MEDICARE, MEDICAID, SELFPAY | END | disposition home or self-care (01) | LOC: SWHD 08:38 | PROVIDERS: PCP Family Medicine; Referring Provider Family Medicine; Visit Provider Student in an Organized Health Care Education/Training Program | DX: S91.301A Unspecified open wound, right foot, initial encounter (principal); X58.XXXA Exposure to other specified factors, initial encounter; E11.40 Type 2 diabetes mellitus with diabetic neuropathy, unspecified; D64.9 Anemia, unspecified; M19.90 Unspecified osteoarthritis, unspecified site; Z86.73 Personal history of transient ischemic attack (TIA), and cerebral infarction without residual deficits; I10 Essential (primary) hypertension; M19.042 Primary osteoarthritis, left hand; Z79.4 Long term (current) use of insulin; Z79.84 Long term (current) use of oral hypoglycemic drugs | CPT/HCPCS: 97597 ==

== ENCOUNTER → 2024-11-10 | Outpatient (CLI) | payer MEDICARE, MEDICAID, SELFPAY | END | disposition home or self-care (01) | LOC: SWHD 08:36 | PROVIDERS: PCP Family Medicine; Referring Provider Family Medicine; Visit Provider Student in an Organized Health Care Education/Training Program | DX: S91.301A Unspecified open wound, right foot, initial encounter (principal); X58.XXXA Exposure to other specified factors, initial encounter; E11.40 Type 2 diabetes mellitus with diabetic neuropathy, unspecified; D64.9 Anemia, unspecified; M19.90 Unspecified osteoarthritis, unspecified site; Z86.73 Personal history of transient ischemic attack (TIA), and cerebral infarction without residual deficits; I10 Essential (primary) hypertension; M19.042 Primary osteoarthritis, left hand; Z79.4 Long term (current) use of insulin; Z79.84 Long term (current) use of oral hypoglycemic drugs | CPT/HCPCS: 99213; G0463 ==

== ENCOUNTER → 2024-11-24 | Outpatient (CLI) | payer MEDICARE, MEDICAID, SELFPAY | END | disposition home or self-care (01) | LOC: SWHD 08:37 | PROVIDERS: PCP Family Medicine; Referring Provider Family Medicine; Visit Provider Student in an Organized Health Care Education/Training Program | DX: S91.301A Unspecified open wound, right foot, initial encounter (principal); X58.XXXA Exposure to other specified factors, initial encounter; E11.40 Type 2 diabetes mellitus with diabetic neuropathy, unspecified; D64.9 Anemia, unspecified; M19.90 Unspecified osteoarthritis, unspecified site; Z86.73 Personal history of transient ischemic attack (TIA), and cerebral infarction without residual deficits; I10 Essential (primary) hypertension; M19.042 Primary osteoarthritis, left hand; Z79.4 Long term (current) use of insulin; Z79.84 Long term (current) use of oral hypoglycemic drugs | CPT/HCPCS: 99213; G0463 ==

== ENCOUNTER → 2024-12-08 | Outpatient (CLI) | payer MEDICARE, MEDICAID, SELFPAY | END | disposition home or self-care (01) | LOC: SWHD 08:39 | PROVIDERS: PCP Family Medicine; Referring Provider Family Medicine; Visit Provider Student in an Organized Health Care Education/Training Program | DX: S91.301A Unspecified open wound, right foot, initial encounter (principal); X58.XXXA Exposure to other specified factors, initial encounter; E11.40 Type 2 diabetes mellitus with diabetic neuropathy, unspecified; M19.90 Unspecified osteoarthritis, unspecified site; Z86.73 Personal history of transient ischemic attack (TIA), and cerebral infarction without residual deficits; I10 Essential (primary) hypertension; M19.042 Primary osteoarthritis, left hand; Z79.4 Long term (current) use of insulin; Z79.84 Long term (current) use of oral hypoglycemic drugs | CPT/HCPCS: 97597; A9270 ==

== ENCOUNTER → 2024-12-15 | Outpatient (CLI) | payer MEDICARE, MEDICAID, SELFPAY | END | disposition home or self-care (01) | LOC: SWHD 08:28 | PROVIDERS: PCP Family Medicine; Referring Provider Family Medicine; Visit Provider Student in an Organized Health Care Education/Training Program | DX: S91.301A Unspecified open wound, right foot, initial encounter (principal); X58.XXXA Exposure to other specified factors, initial encounter; E11.40 Type 2 diabetes mellitus with diabetic neuropathy, unspecified; M19.90 Unspecified osteoarthritis, unspecified site; Z86.73 Personal history of transient ischemic attack (TIA), and cerebral infarction without residual deficits; I10 Essential (primary) hypertension; M19.042 Primary osteoarthritis, left hand; Z79.4 Long term (current) use of insulin; Z79.84 Long term (current) use of oral hypoglycemic drugs | CPT/HCPCS: 99213; G0463 ==

== ENCOUNTER → 2025-01-05 | Outpatient (CLI) | payer MEDICARE, MEDICAID, SELFPAY | END | disposition home or self-care (01) | LOC: SWHD 08:55 | PROVIDERS: PCP Family Medicine; Referring Provider Family Medicine; Visit Provider Student in an Organized Health Care Education/Training Program | DX: S91.301A Unspecified open wound, right foot, initial encounter (principal); X58.XXXA Exposure to other specified factors, initial encounter; E11.40 Type 2 diabetes mellitus with diabetic neuropathy, unspecified; M19.90 Unspecified osteoarthritis, unspecified site; Z86.73 Personal history of transient ischemic attack (TIA), and cerebral infarction without residual deficits; I10 Essential (primary) hypertension; M19.042 Primary osteoarthritis, left hand; Z79.4 Long term (current) use of insulin; Z79.84 Long term (current) use of oral hypoglycemic drugs | CPT/HCPCS: 97597; A9270 ==

== ENCOUNTER → 2025-01-19 | Outpatient (CLI) | payer MEDICARE, MEDICAID, SELFPAY | END | disposition home or self-care (01) | LOC: SWHD 08:18 | PROVIDERS: PCP Family Medicine; Referring Provider Family Medicine; Visit Provider Student in an Organized Health Care Education/Training Program | DX: S91.301A Unspecified open wound, right foot, initial encounter (principal); X58.XXXA Exposure to other specified factors, initial encounter; E11.40 Type 2 diabetes mellitus with diabetic neuropathy, unspecified; M19.90 Unspecified osteoarthritis, unspecified site; Z86.73 Personal history of transient ischemic attack (TIA), and cerebral infarction without residual deficits; I10 Essential (primary) hypertension; M19.042 Primary osteoarthritis, left hand; Z79.84 Long term (current) use of oral hypoglycemic drugs | CPT/HCPCS: 99212; A9270; G0463 ==

== ENCOUNTER → 2025-02-11 | Outpatient (CLI) | payer MEDICARE, MEDICAID, SELFPAY | END | disposition home or self-care (01) | LOC: SWHD 15:01 | PROVIDERS: PCP Family Medicine; Referring Provider Family Medicine; Visit Provider Student in an Organized Health Care Education/Training Program | DX: S91.301A Unspecified open wound, right foot, initial encounter (principal); X58.XXXA Exposure to other specified factors, initial encounter; E11.40 Type 2 diabetes mellitus with diabetic neuropathy, unspecified; M19.90 Unspecified osteoarthritis, unspecified site; Z86.73 Personal history of transient ischemic attack (TIA), and cerebral infarction without residual deficits; I10 Essential (primary) hypertension; M19.042 Primary osteoarthritis, left hand; Z79.84 Long term (current) use of oral hypoglycemic drugs | CPT/HCPCS: 97597; A9270 ==

== ENCOUNTER → 2025-02-25 | Outpatient (CLI) | payer MEDICARE, MEDICAID, SELFPAY | END | disposition home or self-care (01) | PROVIDERS: PCP Family Medicine; Referring Provider Family Medicine; Visit Provider Student in an Organized Health Care Education/Training Program | DX: S91.301A Unspecified open wound, right foot, initial encounter (principal); X58.XXXA Exposure to other specified factors, initial encounter; E11.40 Type 2 diabetes mellitus with diabetic neuropathy, unspecified; M19.90 Unspecified osteoarthritis, unspecified site; Z86.73 Personal history of transient ischemic attack (TIA), and cerebral infarction without residual deficits; I10 Essential (primary) hypertension; M19.042 Primary osteoarthritis, left hand; Z79.84 Long term (current) use of oral hypoglycemic drugs | CPT/HCPCS: 99213; A9270; G0463 ==

== ENCOUNTER → 2025-04-01 | Outpatient (CLI) | payer MEDICARE, MEDICAID, SELFPAY | END | disposition home or self-care (01) | LOC: SWHD 15:19 | PROVIDERS: PCP Family Medicine; Referring Provider Family Medicine; Visit Provider Student in an Organized Health Care Education/Training Program | DX: S91.301A Unspecified open wound, right foot, initial encounter (principal); E11.40 Type 2 diabetes mellitus with diabetic neuropathy, unspecified; M19.90 Unspecified osteoarthritis, unspecified site; Z86.73 Personal history of transient ischemic attack (TIA), and cerebral infarction without residual deficits; I10 Essential (primary) hypertension; M19.042 Primary osteoarthritis, left hand; E11.51 Type 2 diabetes mellitus with diabetic peripheral angiopathy without gangrene; Z79.84 Long term (current) use of oral hypoglycemic drugs | CPT/HCPCS: 97597; A9270 ==

== ENCOUNTER → 2025-04-22 | Outpatient (CLI) | payer MEDICARE, MEDICAID, SELFPAY | END | disposition home or self-care (01) | LOC: SWHD 15:01 | PROVIDERS: PCP Family Medicine; Referring Provider Family Medicine; Visit Provider Student in an Organized Health Care Education/Training Program | DX: S91.301A Unspecified open wound, right foot, initial encounter (principal); X58.XXXA Exposure to other specified factors, initial encounter; E11.40 Type 2 diabetes mellitus with diabetic neuropathy, unspecified; M19.90 Unspecified osteoarthritis, unspecified site; Z86.73 Personal history of transient ischemic attack (TIA), and cerebral infarction without residual deficits; I10 Essential (primary) hypertension; M19.042 Primary osteoarthritis, left hand; E11.51 Type 2 diabetes mellitus with diabetic peripheral angiopathy without gangrene; Z79.84 Long term (current) use of oral hypoglycemic drugs | CPT/HCPCS: 99213; G0463 ==

== ENCOUNTER → 2025-05-27 | Outpatient (CLI) | payer MEDICARE, MEDICAID, SELFPAY | END | disposition home or self-care (01) | LOC: SWHD 14:08 | PROVIDERS: PCP Family Medicine; Referring Provider Family Medicine; Visit Provider Student in an Organized Health Care Education/Training Program | DX: S91.301A Unspecified open wound, right foot, initial encounter (principal); X58.XXXA Exposure to other specified factors, initial encounter; E11.40 Type 2 diabetes mellitus with diabetic neuropathy, unspecified; M19.90 Unspecified osteoarthritis, unspecified site; Z86.73 Personal history of transient ischemic attack (TIA), and cerebral infarction without residual deficits; I10 Essential (primary) hypertension; M19.042 Primary osteoarthritis, left hand; E11.51 Type 2 diabetes mellitus with diabetic peripheral angiopathy without gangrene; Z79.84 Long term (current) use of oral hypoglycemic drugs | CPT/HCPCS: 99213; G0463 ==

== ENCOUNTER → 2025-06-09 | Outpatient (CLI) | payer MEDICARE, MEDICAID, SELFPAY ==
[2025-06-09 14:19] LABS: Basophils # (Auto) 0.1 Thou/mm3 (0.0-0.2); Basophils % (Auto) 1 % (0-2.5); Eosinophils # (Auto) 1.0 Thou/mm3 (0.0-0.5); Eosinophils % (Auto) 12 % (0-10); Hematocrit 45.0 % (41.0-53.0); Hemoglobin 14.1 g/dL (13.5-16.0); Immature Granulocytes Auto 0.02 Thou/mm3 (0.00-0.00); Lymphocytes # (Auto) 2.3 Thou/mm3 (1.0-4.8); Lymphocytes % (Auto) 28 % (10-50); Mean Corpuscular HGB Conc 31.3 g/dl (31.0-37.0); Mean Corpuscular Hemoglobin 24.3 pg (25.0-35.0); Mean Corpuscular Volume 78 fL (80-100); Monocytes # (Auto) 0.5 Thou/mm3 (0.0-0.8); Monocytes % (Auto) 6 % (0-12); Neutrophils # (Auto) 4.4 Thou/mm3 (1.8-7.7); Neutrophils % (Auto) 53 % (37-80); Nucleated Red Blood Cell # 0.00 Thou/mm3 (0.00-0.00); Nucleated Red Blood Cell % 0 /100 WBC (0); Platelet Count 201 Thou/mm3 (140-440); RDW Standard Deviation 46.9 fL (35.1-43.9); Red Blood Count 5.81 Miln/mm3 (4.50-5.90); White Blood Count 8.3 Thou/mm3 (3.8-10.6)
[2025-06-09 14:51] LABS: Glucose Estimated Average 355 mg/dL (80-131); Hemoglobin A1C > 14.0 % Hgb (4.8-6.0)
[2025-06-09 15:01] LABS: Alanine Aminotransferase 24 U/L (10-49); Albumin, Serum 4.3 gm/dL (3.5-5.0); Albumin/Globulin Ratio 1.2 (1.2-2.2); Alkaline Phosphatase 112 U/L (46-116); Anion Gap 10 (7-16); Aspartate Amino Transferase 26 U/L (0-34); BUN/Creatinine Ratio 11 Ratio (12-20); Bilirubin,Total 0.4 mg/dL (0.3-1.2); Blood Urea Nitrogen 21 mg/dL (9-23); Calcium 8.8 mg/dL (8.3-10.6); Calcium (Corrected) 8.8 mg/dL (8.5-10.1); Carbon Dioxide 25.2 mMol/L (20.0-31.0); Chloride 98 mMol/L (98-107); Creatinine (Component) 1.9 mg/dL (0.6-1.3); Globulin 3.7 gm/dL (2.3-3.5); Osmolality,Calculated 295 (275-295); Potassium 4.2 mMol/L (3.4-5.1); Sodium 133 mMol/L (136-145); Total Protein 8.0 gm/dL (5.7-8.2); eGFR 41 See Note
[2025-06-09 15:14] LABS: Glucose 569 mg/dL (74-106)
== END | disposition home or self-care (01) ==
PROVIDERS: PCP Family Medicine; Referring Provider Student in an Organized Health Care Education/Training Program; Visit Provider Student in an Organized Health Care Education/Training Program
DX: E11.621 Type 2 diabetes mellitus with foot ulcer (principal)
CPT/HCPCS: 36415; 80053; 83036; 85025

== ENCOUNTER → 2025-07-08 | Outpatient (CLI) | payer MEDICARE, MEDICAID, SELFPAY | END | disposition home or self-care (01) | LOC: SWHD 09:12 | PROVIDERS: PCP Family Medicine; Referring Provider Family Medicine; Visit Provider Student in an Organized Health Care Education/Training Program | DX: S91.301A Unspecified open wound, right foot, initial encounter (principal); X58.XXXA Exposure to other specified factors, initial encounter; E11.40 Type 2 diabetes mellitus with diabetic neuropathy, unspecified; M19.90 Unspecified osteoarthritis, unspecified site; Z86.73 Personal history of transient ischemic attack (TIA), and cerebral infarction without residual deficits; I10 Essential (primary) hypertension; M19.042 Primary osteoarthritis, left hand; E11.51 Type 2 diabetes mellitus with diabetic peripheral angiopathy without gangrene; Z79.84 Long term (current) use of oral hypoglycemic drugs | CPT/HCPCS: 97597; A9270 ==